=== PATIENT | male | born 1960 | race African-American/Black ===

== ENCOUNTER 2017-01-14 01:52 | Inpatient (IN) | payer OTHER ==
[2017-01-14] VITALS (18 sets, daily range): BP systolic 112–159; BP diastolic 51–97
[~2017-01-14] VITALS: Ht 188 cm; Wt 111.4 kg
[~2017-01-14 01:52] MED LIST: AMLODIPINE BESY10 MG PO; APRESOLINE25 MG PO; BUMETANIDE2 MG PO; CALCITRIOL0.25 MCG PO; DIOVAN160 MG; ERGOCALCIF50000 UNIT PO; EXCEDRIN EXTRA1 EACH PO; EXCEDRIN MIGRA1 EAC3 PO; EXFORGE HCT 101 EAC2 PO; FUROSEMIDE40 MG PO; GABAPENTIN300 MG PO; HYDROCHLOROTHIA25 MG PO; IMDUR30 MG PO; ISOSORBIDE MONO30 MG PO; K-DUR20 MEQ; K-DUR20 MEQ PO; KLOR-CON M2020 MEQ PO; LABETALOL HCL200 MG; LABETALOL HCL200 MG PO; LOSARTAN POTASS50 MG PO; MAGNESIUM400 M1 PO; MEN'S ONE DAIL1 EACH PO; NEPHRO-VITE,1 TABLET PO; NEURONTIN600 MG PO; NORMODYNE,TRAN200 MG PO; NOVOLOG MI100 UNIT/4 SC; SINUS BOTH NARES; ULTRAM50 MG PO
[2017-01-14 03:04] LABS: MCH 29.3 PG (29.0-34.0); MCHC 31.8 G/DL (30.0-36.0); MCV 92.1 FL (86-99); MEAN PLAT.VOLUME 10.7 uM^3 (9.0-12.4); PLATELET COUNT 439 K/uL (156-360); RBC DIS.WIDTH-CV 15.3 % (11.8-14.6); RED BLOOD COUNT 2.39 M/uL (4.00-5.50); WHITE BLOOD COUNT 15.7 K/uL (4.1-10.2)
[2017-01-14 03:13] LABS: CHLORIDE 87 mEq/L (99-109); POTASSIUM 4.1 mEq/L (3.7-5.4); SODIUM 126 mEq/L (136-147)
[2017-01-14 03:17] LABS: ANION GAP 16 MEQ/L (2-14); GLUCOSE 604 mg/dL (70-99)
[2017-01-14 03:18] LABS: D-DIMER ELISA > 4.00 mg/L FEU (< 0.57); INTER. NORMALIZED RATIO 1.1; PROTHROMBIN TIME 11.2 (9.2-11.2); PTT 35.4 (25-32); TOTAL BILIRUBIN 0.3 mg/dL (0.0-1.0)
[2017-01-14 03:19] LABS: ALKALINE PHOSPHATASE 109 IU/L (3-129); GFR ESTIMATE (CALCULATED) 7 mL/min/
[2017-01-14 03:20] LABS: UREA NITROGEN (BUN) 48 mg/dL (9-23)
[2017-01-14 03:23] LABS: LIPASE 37 U/L (1.0-51.0)
[2017-01-14 03:25] LABS: TROP-I INTERPRETATION NEGATIVE; TROPONIN-I 0.03 ng/mL (0.0-0.30)
[2017-01-14 05:22] LABS: BASE EXCESS -2.4 mEq/L (-3 to +3); BICARBONATE 23.7 mEq/L (22-26); CARBOXY HGB 1.9 % (0-5); COMMENTS - BLOOD GASES C+A+; METHEMOGLOBIN 1.1 % (0-1.5); O2 FLOW 4 L/MIN; PCO2 46 mm Hg (35-45); PO2 64 mm Hg (80-100); SITE RR; pH 7.32 (7.35-7.45)
[2017-01-14 05:23] LABS: DEVICE NC
[2017-01-14 08:28] LABS: Estimated Average Glucose 283 mg/dL (70-123); HEMOGLOBIN A1c (GLYCOHEMOGLOB) 11.5 % HGB (Below 5.7)
[2017-01-14 08:59] LABS: POINT-OF-CARE METER ID UU13113803; POINT-OF-CARE USER ID AGYTJR
[2017-01-14 09:32] LABS: METH RESISTANT S AUREUS PCR NEGATIVE (NEGATIVE); PROBE CHECK PASS; SPECIMEN PROCESSING CONTROL PASS
[2017-01-14 09:44] LABS: POINT-OF-CARE METER ID UU13113803; POINT-OF-CARE USER ID AGYTJR
[2017-01-14 09:57] LABS: ANION GAP 18 MEQ/L (2-14); CHLORIDE 89 MEQ/L (99-109); GFR ESTIMATE (CALCULATED) 7 mL/min/; GLUCOSE 337 mg/dL (70-99); POTASSIUM 4.1 MEQ/L (3.7-5.4); SAMPLE HEMOLYSIS CHECK 0; SAMPLE ICTERIC CHECK 0; SAMPLE LIPEMIA CHECK 0; SODIUM 127 MEQ/L (136-147); UREA NITROGEN (BUN) 50 mg/dL (9-23)
[2017-01-14 10:51] LABS: POINT-OF-CARE METER ID UU14100415
[2017-01-14 10:51] LABS: POINT-OF-CARE METER ID UU14100415
[2017-01-14 11:08] LABS: POINT-OF-CARE METER ID UU13113803; POINT-OF-CARE USER ID AGYTJR
[2017-01-14 12:18] LABS: POINT-OF-CARE METER ID UU13113803; POINT-OF-CARE USER ID AGYTJR
[2017-01-14 12:45] LABS: POINT-OF-CARE METER ID UU13113803; POINT-OF-CARE USER ID AGYTJR
[2017-01-14 12:59] LABS: BASOPHIL COUNT 0.1 K/uL (0-0.1); EOSINOPHIL (%) 0 % (0-5); HEMATOCRIT 24.4 % (38.0-50.0); IMMATURE GRANULOCYTE (%) 1.2 % (0.0-0.7); IMMATURE GRANULOCYTE COUNT 0.4 K/uL; INSTRUMENT ABS NEUTROPHIL CT 25.8 K/uL; MCH 30.3 PG (29.0-34.0); MCHC 33.2 G/DL (30.0-36.0); MCV 91.4 FL (86-99); MEAN PLAT.VOLUME 11.1 uM^3 (9.0-12.4); MONOCYTE (%) 5.8 % (3-12); MONOCYTE COUNT 1.7 K/uL (0-0.8); NEUTROPHIL (%) 89.3 % (45-76); NEUTROPHIL COUNT 25.8 K/uL (1.8-6.4); PLATELET COUNT 473 K/uL (156-360); RBC DIS.WIDTH-CV 15.9 % (11.8-14.6); RBC DIS.WIDTH-SD 51.8 % (39-53); RED BLOOD COUNT 2.67 M/uL (4.00-5.50); WHITE BLOOD COUNT 28.9 K/uL (4.1-10.2)
[2017-01-14 13:34] LABS: ANION GAP 16 MEQ/L (2-14); CHLORIDE 90 MEQ/L (99-109); GFR ESTIMATE (CALCULATED) 8 mL/min/; GLUCOSE 184 mg/dL (70-99); POTASSIUM 4.3 MEQ/L (3.7-5.4); SAMPLE HEMOLYSIS CHECK 0; SAMPLE ICTERIC CHECK 0; SAMPLE LIPEMIA CHECK 0; SODIUM 128 MEQ/L (136-147); UREA NITROGEN (BUN) 53 mg/dL (9-23)
[2017-01-14 14:01] LABS: POINT-OF-CARE METER ID UU13113803; POINT-OF-CARE USER ID AGYTJR
[2017-01-14 17:36] LABS: POINT-OF-CARE METER ID UU13113803; POINT-OF-CARE USER ID AGYTJR
[2017-01-14 21:58] LABS: POINT-OF-CARE METER ID UU13113803
[2017-01-15] VITALS (14 sets, daily range): BP systolic 99–183; BP diastolic 57–94
[2017-01-15 05:03] LABS: CHLORIDE 91 mEq/L (99-109); POTASSIUM 4.5 mEq/L (3.7-5.4); SODIUM 130 mEq/L (136-147)
[2017-01-15 05:06] LABS: ANION GAP 19 MEQ/L (2-14); GLUCOSE 107 mg/dL (70-99)
[2017-01-15 05:09] LABS: GFR ESTIMATE (CALCULATED) 7 mL/min/
[2017-01-15 05:10] LABS: UREA NITROGEN (BUN) 59 mg/dL (9-23)
[2017-01-15 08:07] LABS: POINT-OF-CARE METER ID UU13113748; POINT-OF-CARE USER ID AGYTJR
[2017-01-15 10:19] LABS: BASOPHIL COUNT 0.1 K/uL (0-0.1); EOSINOPHIL (%) 0.5 % (0-5); EOSINOPHIL COUNT 0.2 K/uL (0-0.3); IMMATURE GRANULOCYTE (%) 1.5 % (0.0-0.7); IMMATURE GRANULOCYTE COUNT 0.5 K/uL; INSTRUMENT ABS NEUTROPHIL CT 27.6 K/uL; LYMPHOCYTE COUNT 1.9 K/uL (1.0-2.8); MEAN PLAT.VOLUME 10.9 uM^3 (9.0-12.4); MONOCYTE (%) 6.5 % (3-12); MONOCYTE COUNT 2.1 K/uL (0-0.8); NEUTROPHIL (%) 85.3 % (45-76); NEUTROPHIL COUNT 27.6 K/uL (1.8-6.4); PLATELET COUNT 452 K/uL (156-360)
[2017-01-15 10:22] LABS: HEMATOCRIT 24.3 % (38.0-50.0); MCH 29.5 PG (29.0-34.0); MCHC 32.5 G/DL (30.0-36.0); MCV 90.7 FL (86-99); RBC DIS.WIDTH-CV 15.9 % (11.8-14.6); RBC DIS.WIDTH-SD 52.3 % (39-53); RED BLOOD COUNT 2.68 M/uL (4.00-5.50)
[2017-01-15 10:28] LABS: WHITE BLOOD COUNT 32.3 K/uL (4.1-10.2)
[2017-01-15] MEDS ORDERED: AMBIEN10 MG PO (10:37)
[2017-01-15] MEDS ORDERED: CALCITRIOL0.5 MCG PO (10:37)
[2017-01-15] MEDS ORDERED: VITAMIN D-32000 UNI2 PO (10:38)
[2017-01-15] MEDS ORDERED: COLACE100 MG PO (10:39)
[2017-01-15] MEDS ORDERED: FISH OIL 1,0001 EAC7 PO (10:39)
[2017-01-15] MEDS ORDERED: NEURONTIN100 MG PO ×2 (10:40)
[2017-01-15] MEDS ORDERED: GENTAMICIN SULF30 GM TP (10:43)
[2017-01-15] MEDS ORDERED: NOVOLOG MI100 UNIT/4 SC (10:44)
[2017-01-15] MEDS ORDERED: MINOXIDIL2.5 MG PO (10:45)
[2017-01-15] MEDS ORDERED: TYLENOL WITH C1 EACH PO (10:47)
[2017-01-15] MEDS ORDERED: SENSIPAR30 MG PO (10:47)
[2017-01-15] MEDS ORDERED: VALSARTAN320 MG PO (10:48)
[2017-01-15] MEDS ORDERED: ELIPHOS667 MG PO (10:49)
[2017-01-15] MEDS ORDERED: VENLAFAXINE HCL75 MG PO (10:50)
[2017-01-15] MEDS ORDERED: ONDANSETRON HCL4 MG PO (10:50)
[2017-01-15 12:31] LABS: POINT-OF-CARE METER ID UU13113803; POINT-OF-CARE USER ID AGYTJR
[2017-01-15 17:49] LABS: POINT-OF-CARE METER ID UU14174217
[2017-01-15 21:44] LABS: POINT-OF-CARE METER ID UU14174217
[2017-01-16] VITALS (8 sets, daily range): BP systolic 98–137; BP diastolic 68–88
[2017-01-16 05:54] LABS: ANION GAP 16 MEQ/L (2-14); CHLORIDE 88 MEQ/L (99-109); GFR ESTIMATE (CALCULATED) 8 mL/min/; POTASSIUM 4.7 MEQ/L (3.7-5.4); SAMPLE HEMOLYSIS CHECK 0; SAMPLE ICTERIC CHECK 0; SAMPLE LIPEMIA CHECK 0; SODIUM 125 MEQ/L (136-147); UREA NITROGEN (BUN) 59 mg/dL (9-23)
[2017-01-16 06:00] LABS: GLUCOSE 324 mg/dL (70-99)
[2017-01-16 08:18] LABS: VANCOMYCIN, TROUGH 21.5 MCG/ML (10-20)
[2017-01-16 17:45] LABS: POINT-OF-CARE METER ID UU14174217
[2017-01-16 21:39] LABS: POINT-OF-CARE METER ID UU14162636
[2017-01-17] VITALS (10 sets, daily range): BP systolic 120–164; BP diastolic 67–93
[2017-01-17 05:26] LABS: BASOPHIL COUNT 0.1 K/uL (0-0.1); EOSINOPHIL COUNT 0.3 K/uL (0-0.3); HEMATOCRIT 20.1 % (38.0-50.0); IMMATURE GRANULOCYTE COUNT 0.6 K/uL; INSTRUMENT ABS NEUTROPHIL CT 25.5 K/uL; LYMPHOCYTE COUNT 1.5 K/uL (1.0-2.8); MCH 30.6 PG (29.0-34.0); MCHC 33.8 G/DL (30.0-36.0); MCV 90.5 FL (86-99); MEAN PLAT.VOLUME 11.2 uM^3 (9.0-12.4); MONOCYTE (%) 5.6 % (3-12); MONOCYTE COUNT 1.7 K/uL (0-0.8); NEUTROPHIL (%) 86.1 % (45-76); NEUTROPHIL COUNT 25.5 K/uL (1.8-6.4); PLATELET COUNT 387 K/uL (156-360); RBC DIS.WIDTH-CV 15.5 % (11.8-14.6); RBC DIS.WIDTH-SD 50.5 % (39-53); RED BLOOD COUNT 2.22 M/uL (4.00-5.50); WHITE BLOOD COUNT 29.7 K/uL (4.1-10.2)
[2017-01-17 05:58] LABS: ANION GAP 18 MEQ/L (2-14); CHLORIDE 88 MEQ/L (99-109); GFR ESTIMATE (CALCULATED) 8 mL/min/; GLUCOSE 280 mg/dL (70-99); POTASSIUM 4.5 MEQ/L (3.7-5.4); SAMPLE HEMOLYSIS CHECK 0; SAMPLE ICTERIC CHECK 0; SAMPLE LIPEMIA CHECK 0; SODIUM 127 MEQ/L (136-147); UREA NITROGEN (BUN) 60 mg/dL (9-23)
[2017-01-17 15:44] LABS: TYPE OF FLUID PLEURAL
[2017-01-17 16:21] LABS: RED CELL DILUTION 10
[2017-01-17 16:22] LABS: BODY FLUID RBC'S 500 /MM^3 (0-100); BODY FLUID WBC'S 11250 /MM^3 (0-500); RED CELL AREA COUNTED 0.4; WBC AREA COUNTED 0.4; WBC DILUTION 10; WHITE CELL RAW COUNT 45
[2017-01-17 16:28] LABS: BODY FLUID EOSINOPHILS 0 % (0-25); MONO RAW COUNT 1; MONONUCLEAR WBC'S 1 %; POLY RAW COUNT 99; POLYNUCLEAR WBC'S 99 % (0-25)
[2017-01-17 16:40] LABS: BODY FLUID PROTEIN 5.1 G/DL; GLUCOSE 152 mg/dL (70-99); LACTATE DEHYDROGENASE 1406 IU/L (20-246)
[2017-01-17 16:41] LABS: BODY FLUID LDH 1406 IU/L
[2017-01-18] VITALS (9 sets, daily range): BP systolic 120–142; BP diastolic 65–76
[2017-01-18 04:28] LABS: BASOPHIL COUNT 0.1 K/uL (0-0.1); EOSINOPHIL (%) 2.3 % (0-5); EOSINOPHIL COUNT 0.6 K/uL (0-0.3); HEMATOCRIT 24.3 % (38.0-50.0); IMMATURE GRANULOCYTE COUNT 0.5 K/uL; INSTRUMENT ABS NEUTROPHIL CT 18.9 K/uL; LYMPHOCYTE COUNT 1.9 K/uL (1.0-2.8); MCH 28.9 PG (29.0-34.0); MCHC 32.9 G/DL (30.0-36.0); MCV 87.7 FL (86-99); MEAN PLAT.VOLUME 10.6 uM^3 (9.0-12.4); MONOCYTE (%) 8.2 % (3-12); NEUTROPHIL (%) 79.3 % (45-76); NEUTROPHIL COUNT 18.9 K/uL (1.8-6.4); PLATELET COUNT 380 K/uL (156-360); RBC DIS.WIDTH-CV 14.7 % (11.8-14.6); RBC DIS.WIDTH-SD 46.9 % (39-53); WHITE BLOOD COUNT 23.8 K/uL (4.1-10.2)
[2017-01-18 04:30] LABS: RED BLOOD COUNT 2.77 M/uL (4.00-5.50)
[2017-01-18 04:42] LABS: CHLORIDE 92 mEq/L (99-109); POTASSIUM 4.3 mEq/L (3.7-5.4); SODIUM 131 mEq/L (136-147)
[2017-01-18 04:43] LABS: CHLORIDE 93 mEq/L (99-109)
[2017-01-18 04:44] LABS: GLUCOSE 208 mg/dL (70-99); POTASSIUM 4.3 mEq/L (3.7-5.4); SODIUM 132 mEq/L (136-147)
[2017-01-18 04:45] LABS: ANION GAP 19 MEQ/L (2-14); GLUCOSE 210 mg/dL (70-99)
[2017-01-18 04:47] LABS: ANION GAP 18 MEQ/L (2-14)
[2017-01-18 04:48] LABS: GFR ESTIMATE (CALCULATED) 8 mL/min/
[2017-01-18 04:49] LABS: GFR ESTIMATE (CALCULATED) 8 mL/min/; UREA NITROGEN (BUN) 60 mg/dL (9-23)
[2017-01-18 04:50] LABS: UREA NITROGEN (BUN) 58 mg/dL (9-23)
[2017-01-18 04:57] LABS: ALKALINE PHOSPHATASE 240 IU/L (3-129); TOTAL BILIRUBIN 0.4 mg/dL (0.0-1.0)
[2017-01-18 07:36] LABS: POINT-OF-CARE METER ID UU13113781
[2017-01-18 12:45] LABS: POINT-OF-CARE METER ID UU13113781
[2017-01-18 13:00] LABS: TYPE OF FLUID PLEURAL
[2017-01-18 13:52] LABS: BODY FLUID EOSINOPHILS 0 % (0-25); BODY FLUID RBC'S 1000 /MM^3 (0-100); BODY FLUID WBC'S 13920 /MM^3 (0-500); MONONUCLEAR WBC'S 2 %; POLYNUCLEAR WBC'S 98 % (0-25)
[2017-01-18 14:28] LABS: BODY FLUID LDH 1320 IU/L; BODY FLUID PROTEIN 5.2 G/DL
[2017-01-18 15:11] LABS: IRON 26 MCG/DL (35-150)
[2017-01-18 15:56] LABS: GLUCOSE 175 mg/dL (70-99)
[2017-01-18 15:57] LABS: LACTATE DEHYDROGENASE 134 IU/L (20-246)
[2017-01-18 16:43] LABS: POINT-OF-CARE METER ID UU13113781
[2017-01-18 21:07] LABS: POINT-OF-CARE METER ID UU13113698
[2017-01-19 04:47] LABS: BASOPHIL COUNT 0.1 K/uL (0-0.1); EOSINOPHIL (%) 3.2 % (0-5); EOSINOPHIL COUNT 0.7 K/uL (0-0.3); HEMATOCRIT 25.9 % (38.0-50.0); IMMATURE GRANULOCYTE (%) 2.4 % (0.0-0.7); IMMATURE GRANULOCYTE COUNT 0.5 K/uL; INSTRUMENT ABS NEUTROPHIL CT 16.9 K/uL; LYMPHOCYTE COUNT 1.9 K/uL (1.0-2.8); MCH 29.8 PG (29.0-34.0); MCHC 33.6 G/DL (30.0-36.0); MCV 88.7 FL (86-99); MEAN PLAT.VOLUME 10.5 uM^3 (9.0-12.4); MONOCYTE (%) 7.9 % (3-12); MONOCYTE COUNT 1.7 K/uL (0-0.8); NEUTROPHIL (%) 77.3 % (45-76); NEUTROPHIL COUNT 16.9 K/uL (1.8-6.4); PLATELET COUNT 417 K/uL (156-360); RBC DIS.WIDTH-CV 15.1 % (11.8-14.6); RBC DIS.WIDTH-SD 48.4 % (39-53); RED BLOOD COUNT 2.92 M/uL (4.00-5.50); WHITE BLOOD COUNT 21.8 K/uL (4.1-10.2)
[2017-01-19 04:52] VITALS: BP 128/72
[2017-01-19 04:55] LABS: CHLORIDE 95 mEq/L (99-109); POTASSIUM 4.6 mEq/L (3.7-5.4); SODIUM 133 mEq/L (136-147)
[2017-01-19 04:57] LABS: GLUCOSE 176 mg/dL (70-99)
[2017-01-19 04:58] LABS: ANION GAP 17 MEQ/L (2-14); CHLORIDE 95 mEq/L (99-109); POTASSIUM 4.5 mEq/L (3.7-5.4); SODIUM 133 mEq/L (136-147)
[2017-01-19 05:00] LABS: ALKALINE PHOSPHATASE 236 IU/L (3-129); GLUCOSE 177 mg/dL (70-99)
[2017-01-19 05:01] LABS: GFR ESTIMATE (CALCULATED) 8 mL/min/
[2017-01-19 05:02] LABS: ANION GAP 18 MEQ/L (2-14); UREA NITROGEN (BUN) 57 mg/dL (9-23)
[2017-01-19 05:04] LABS: GFR ESTIMATE (CALCULATED) 8 mL/min/
[2017-01-19 05:05] LABS: UREA NITROGEN (BUN) 56 mg/dL (9-23)
[2017-01-19 05:07] LABS: TOTAL BILIRUBIN 0.3 mg/dL (0.0-1.0)
[2017-01-19 08:25] VITALS: BP 137/62
[2017-01-19 08:32] LABS: POINT-OF-CARE METER ID UU13113781; POINT-OF-CARE USER ID NUTSLF44
[2017-01-19 10:24] LABS: POC NON-PRINT COM 1 ND
[2017-01-19 12:16] VITALS: BP 145/77
[2017-01-19 12:42] LABS: POINT-OF-CARE METER ID UU13113781; POINT-OF-CARE USER ID NUTSLF44
[2017-01-19 16:01] VITALS: BP 140/69
[2017-01-19 17:14] LABS: POINT-OF-CARE METER ID UU13113781; POINT-OF-CARE USER ID NUTSLF44
[2017-01-19 19:20] VITALS: BP 160/87
[2017-01-19 23:13] VITALS: BP 168/88
[2017-01-20 03:42] VITALS: BP 149/81
[2017-01-20 05:45] LABS: BASOPHIL COUNT 0.1 K/uL (0-0.1); EOSINOPHIL (%) 3.8 % (0-5); EOSINOPHIL COUNT 0.8 K/uL (0-0.3); HEMATOCRIT 27.2 % (38.0-50.0); IMMATURE GRANULOCYTE (%) 2.9 % (0.0-0.7); IMMATURE GRANULOCYTE COUNT 0.6 K/uL; INSTRUMENT ABS NEUTROPHIL CT 15.3 K/uL; LYMPHOCYTE COUNT 2.4 K/uL (1.0-2.8); MCH 29.1 PG (29.0-34.0); MEAN PLAT.VOLUME 10.6 uM^3 (9.0-12.4); MONOCYTE COUNT 1.7 K/uL (0-0.8); NEUTROPHIL (%) 73.3 % (45-76); NEUTROPHIL COUNT 15.3 K/uL (1.8-6.4); PLATELET COUNT 495 K/uL (156-360); RBC DIS.WIDTH-CV 15.3 % (11.8-14.6); RBC DIS.WIDTH-SD 50.2 % (39-53); RED BLOOD COUNT 2.99 M/uL (4.00-5.50); WHITE BLOOD COUNT 20.9 K/uL (4.1-10.2)
[2017-01-20 06:11] LABS: ALKALINE PHOSPHATASE 208 IU/L (3-129); ANION GAP 17 MEQ/L (2-14); CHLORIDE 95 MEQ/L (99-109); GFR ESTIMATE (CALCULATED) 9 mL/min/; GLUCOSE 123 mg/dL (70-99); POTASSIUM 4.8 MEQ/L (3.7-5.4); SAMPLE HEMOLYSIS CHECK 0; SAMPLE ICTERIC CHECK 0; SAMPLE LIPEMIA CHECK 0; SODIUM 136 MEQ/L (136-147); TOTAL BILIRUBIN 0.4 MG/DL (0.0-1.0); UREA NITROGEN (BUN) 53 mg/dL (9-23)
[2017-01-20 07:24] VITALS: BP 158/79
[2017-01-20 08:12] LABS: POINT-OF-CARE METER ID UU13113698; POINT-OF-CARE USER ID ENVKC36
[2017-01-20 11:33] LABS: POINT-OF-CARE METER ID UU13113781; POINT-OF-CARE USER ID ENVKC36
[2017-01-20 16:38] LABS: POINT-OF-CARE METER ID UU13113781; POINT-OF-CARE USER ID ENVKC36
[2017-01-20 16:47] VITALS: BP 163/91
[2017-01-20 18:00] VITALS: BP 177/94
[2017-01-20 19:25] VITALS: BP 168/89
[2017-01-20 21:38] LABS: POINT-OF-CARE METER ID UU13113698
[2017-01-20 23:40] VITALS: BP 149/76
[2017-01-21 03:26] VITALS: BP 139/73
[2017-01-21 05:44] LABS: BASOPHIL COUNT 0.1 K/uL (0-0.1); EOSINOPHIL (%) 3.4 % (0-5); EOSINOPHIL COUNT 0.6 K/uL (0-0.3); HEMATOCRIT 28.3 % (38.0-50.0); IMMATURE GRANULOCYTE (%) 3.1 % (0.0-0.7); IMMATURE GRANULOCYTE COUNT 0.6 K/uL; INSTRUMENT ABS NEUTROPHIL CT 13.5 K/uL; LYMPHOCYTE COUNT 2.1 K/uL (1.0-2.8); MCHC 32.5 G/DL (30.0-36.0); MCV 92.2 FL (86-99); MEAN PLAT.VOLUME 10.6 uM^3 (9.0-12.4); MONOCYTE (%) 8.4 % (3-12); MONOCYTE COUNT 1.6 K/uL (0-0.8); NEUTROPHIL COUNT 13.5 K/uL (1.8-6.4); PLATELET COUNT 516 K/uL (156-360); RBC DIS.WIDTH-CV 15.6 % (11.8-14.6); RBC DIS.WIDTH-SD 51.6 % (39-53); RED BLOOD COUNT 3.07 M/uL (4.00-5.50); WHITE BLOOD COUNT 18.5 K/uL (4.1-10.2)
[2017-01-21 06:39] LABS: ALKALINE PHOSPHATASE 190 IU/L (3-129); ANION GAP 18 MEQ/L (2-14); CHLORIDE 95 MEQ/L (99-109); GFR ESTIMATE (CALCULATED) 9 mL/min/; GLUCOSE 176 mg/dL (70-99); POTASSIUM 4.8 MEQ/L (3.7-5.4); SAMPLE HEMOLYSIS CHECK 0; SAMPLE ICTERIC CHECK 0; SAMPLE LIPEMIA CHECK 0; SODIUM 136 MEQ/L (136-147); UREA NITROGEN (BUN) 48 mg/dL (9-23)
[2017-01-21 06:43] LABS: TOTAL BILIRUBIN 0.3 MG/DL (0.0-1.0)
[2017-01-21 07:50] VITALS: BP 165/81
[2017-01-21 11:47] VITALS: BP 140/68
[2017-01-21 15:53] VITALS: BP 150/75
[2017-01-21 19:23] VITALS: BP 145/70
[2017-01-22 03:50] VITALS: BP 136/76
[2017-01-22 05:26] LABS: BASOPHIL COUNT 0.1 K/uL (0-0.1); EOSINOPHIL (%) 3.9 % (0-5); EOSINOPHIL COUNT 0.7 K/uL (0-0.3); HEMATOCRIT 26.7 % (38.0-50.0); IMMATURE GRANULOCYTE (%) 2.7 % (0.0-0.7); IMMATURE GRANULOCYTE COUNT 0.5 K/uL; INSTRUMENT ABS NEUTROPHIL CT 11.6 K/uL; LYMPHOCYTE COUNT 2.4 K/uL (1.0-2.8); MCH 30.3 PG (29.0-34.0); MCHC 32.2 G/DL (30.0-36.0); MEAN PLAT.VOLUME 10.4 uM^3 (9.0-12.4); MONOCYTE COUNT 1.7 K/uL (0-0.8); NEUTROPHIL (%) 68.9 % (45-76); NEUTROPHIL COUNT 11.6 K/uL (1.8-6.4); PLATELET COUNT 506 K/uL (156-360); RBC DIS.WIDTH-CV 15.6 % (11.8-14.6); RBC DIS.WIDTH-SD 53.1 % (39-53); RED BLOOD COUNT 2.84 M/uL (4.00-5.50); WHITE BLOOD COUNT 16.8 K/uL (4.1-10.2)
[2017-01-22 07:27] VITALS: BP 146/74
[2017-01-22 08:04] LABS: POINT-OF-CARE METER ID UU13113698
[2017-01-22 12:15] VITALS: BP 162/88
[2017-01-22 16:13] VITALS: BP 159/84
[2017-01-22 19:45] VITALS: BP 152/83
[2017-01-22 21:54] LABS: POINT-OF-CARE METER ID UU13113698
[2017-01-23] VITALS (7 sets, daily range): BP systolic 132–172; BP diastolic 77–95
[2017-01-23 06:04] LABS: BASOPHIL COUNT 0.1 K/uL (0-0.1); EOSINOPHIL (%) 2.9 % (0-5); EOSINOPHIL COUNT 0.5 K/uL (0-0.3); HEMATOCRIT 26.5 % (38.0-50.0); IMMATURE GRANULOCYTE (%) 1.8 % (0.0-0.7); IMMATURE GRANULOCYTE COUNT 0.3 K/uL; LYMPHOCYTE COUNT 2.1 K/uL (1.0-2.8); MCH 28.8 PG (29.0-34.0); MCHC 30.9 G/DL (30.0-36.0); MEAN PLAT.VOLUME 10.1 uM^3 (9.0-12.4); MONOCYTE (%) 8.7 % (3-12); MONOCYTE COUNT 1.4 K/uL (0-0.8); NEUTROPHIL (%) 73.1 % (45-76); PLATELET COUNT 531 K/uL (156-360); RBC DIS.WIDTH-CV 15.5 % (11.8-14.6); RBC DIS.WIDTH-SD 51.9 % (39-53); RED BLOOD COUNT 2.85 M/uL (4.00-5.50); WHITE BLOOD COUNT 16.4 K/uL (4.1-10.2)
[2017-01-23 06:35] LABS: ANION GAP 17 MEQ/L (2-14); CHLORIDE 95 MEQ/L (99-109); GFR ESTIMATE (CALCULATED) 9 mL/min/; GLUCOSE 174 mg/dL (70-99); SAMPLE HEMOLYSIS CHECK 0; SAMPLE ICTERIC CHECK 0; SAMPLE LIPEMIA CHECK 0; SODIUM 136 MEQ/L (136-147); TOTAL BILIRUBIN 0.3 MG/DL (0.0-1.0); UREA NITROGEN (BUN) 45 mg/dL (9-23)
[2017-01-23 06:38] LABS: ALKALINE PHOSPHATASE 139 IU/L (3-129)
[2017-01-23 07:55] LABS: POINT-OF-CARE METER ID UU13113781
[2017-01-23 14:04] LABS: IRON 24 MCG/DL (35-150)
[2017-01-23 21:23] LABS: POINT-OF-CARE USER ID ENVMNS
[2017-01-24 02:49] LABS: POINT-OF-CARE USER ID ENVMNS
[2017-01-24 05:01] VITALS: BP 139/69
[2017-01-24 06:45] LABS: HEMATOCRIT 26.9 % (38.0-50.0); MCH 29.8 PG (29.0-34.0); MCV 93.1 FL (86-99); MEAN PLAT.VOLUME 9.9 uM^3 (9.0-12.4); PLATELET COUNT 529 K/uL (156-360); RBC DIS.WIDTH-CV 15.5 % (11.8-14.6); RBC DIS.WIDTH-SD 52.4 % (39-53); RED BLOOD COUNT 2.89 M/uL (4.00-5.50); WHITE BLOOD COUNT 17.1 K/uL (4.1-10.2)
[2017-01-24 07:16] LABS: ANION GAP 13 MEQ/L (2-14); CHLORIDE 95 MEQ/L (99-109); GFR ESTIMATE (CALCULATED) 9 mL/min/; GLUCOSE 161 mg/dL (70-99); POTASSIUM 4.7 MEQ/L (3.7-5.4); SAMPLE HEMOLYSIS CHECK 0; SAMPLE ICTERIC CHECK 0; SAMPLE LIPEMIA CHECK 0; SODIUM 135 MEQ/L (136-147); UREA NITROGEN (BUN) 42 mg/dL (9-23)
[2017-01-24 07:50] VITALS: BP 157/81
[2017-01-24 11:41] VITALS: BP 162/92
[2017-01-24 15:51] VITALS: BP 173/99
[2017-01-24 19:20] VITALS: BP 168/80
[2017-01-24 21:22] LABS: POINT-OF-CARE METER ID UU13113781
[2017-01-25 08:15] VITALS: BP 153/72
[2017-01-25 08:15] LABS: POINT-OF-CARE METER ID UU13113725
[2017-01-25 12:06] LABS: POINT-OF-CARE METER ID UU13113725
[2017-01-25 15:27] LABS: POINT-OF-CARE METER ID UU13113725
[2017-01-25 15:43] VITALS: BP 153/90
[2017-01-25 18:53] VITALS: BP 152/70
[2017-01-26 06:46] LABS: POINT-OF-CARE METER ID UU13113725
[2017-01-26 07:56] VITALS: BP 175/88
[2017-01-26 11:15] LABS: POINT-OF-CARE METER ID UU13113725
[2017-01-26 12:30] VITALS: BP 128/78
[2017-01-26 18:30] LABS: POINT-OF-CARE METER ID UU13113675
[2017-01-26 21:03] LABS: POINT-OF-CARE METER ID UU13113725
[2017-01-26 23:10] VITALS: BP 161/85
[2017-01-27 03:01] LABS: POINT-OF-CARE METER ID UU13113725
[2017-01-27 06:13] LABS: POINT-OF-CARE METER ID UU13113725
[2017-01-27 06:23] LABS: MCH 30.1 PG (29.0-34.0); MEAN PLAT.VOLUME 10.1 uM^3 (9.0-12.4); PLATELET COUNT 528 K/uL (156-360); RBC DIS.WIDTH-CV 15.3 % (11.8-14.6); RBC DIS.WIDTH-SD 52.1 % (39-53); RED BLOOD COUNT 2.66 M/uL (4.00-5.50); WHITE BLOOD COUNT 21.6 K/uL (4.1-10.2)
[2017-01-27 06:44] LABS: ANION GAP 17 MEQ/L (2-14); CHLORIDE 99 MEQ/L (99-109); POTASSIUM 5.5 MEQ/L (3.7-5.4); SAMPLE HEMOLYSIS CHECK 0; SAMPLE ICTERIC CHECK 0; SAMPLE LIPEMIA CHECK 0; SODIUM 138 MEQ/L (136-147)
[2017-01-27 06:54] LABS: GFR ESTIMATE (CALCULATED) 8 mL/min/; UREA NITROGEN (BUN) 57 mg/dL (9-23)
[2017-01-27 06:55] LABS: GLUCOSE 107 mg/dL (70-99)
[2017-01-27 07:47] VITALS: BP 146/71
[2017-01-27 11:41] LABS: POINT-OF-CARE METER ID UU13113725
[2017-01-27 16:00] VITALS: BP 113/61; BP 13/61
[2017-01-27 17:09] LABS: POINT-OF-CARE METER ID UU13113725
[2017-01-27 23:20] VITALS: BP 127/68
[2017-01-28] VITALS (8 sets, daily range): BP systolic 100–116; BP diastolic 56–76
[2017-01-28 06:44] LABS: POINT-OF-CARE METER ID UU13113725
[2017-01-28 08:33] LABS: POINT-OF-CARE METER ID UU13113725
[2017-01-28 08:33] LABS: BASOPHIL COUNT 0.1 K/uL (0-0.1); EOSINOPHIL (%) 0.5 % (0-5); EOSINOPHIL COUNT 0.1 K/uL (0-0.3); HEMATOCRIT 26.5 % (38.0-50.0); IMMATURE GRANULOCYTE (%) 1.1 % (0.0-0.7); IMMATURE GRANULOCYTE COUNT 0.3 K/uL; INSTRUMENT ABS NEUTROPHIL CT 19.6 K/uL; LYMPHOCYTE COUNT 1.7 K/uL (1.0-2.8); MCH 28.8 PG (29.0-34.0); MCHC 30.6 G/DL (30.0-36.0); MCV 94.3 FL (86-99); MEAN PLAT.VOLUME 9.8 uM^3 (9.0-12.4); MONOCYTE COUNT 1.2 K/uL (0-0.8); NEUTROPHIL (%) 85.8 % (45-76); NEUTROPHIL COUNT 19.6 K/uL (1.8-6.4); PLATELET COUNT 521 K/uL (156-360); RBC DIS.WIDTH-CV 15.7 % (11.8-14.6); RBC DIS.WIDTH-SD 54.3 % (39-53); RED BLOOD COUNT 2.81 M/uL (4.00-5.50); WHITE BLOOD COUNT 22.9 K/uL (4.1-10.2)
[2017-01-28 09:03] LABS: ANION GAP 15 MEQ/L (2-14); CHLORIDE 96 MEQ/L (99-109); GFR ESTIMATE (CALCULATED) 8 mL/min/; GLUCOSE 131 mg/dL (70-99); POTASSIUM 5.5 MEQ/L (3.7-5.4); SAMPLE HEMOLYSIS CHECK 0; SAMPLE ICTERIC CHECK 0; SAMPLE LIPEMIA CHECK 0; SODIUM 133 MEQ/L (136-147); UREA NITROGEN (BUN) 57 mg/dL (9-23)
[2017-01-28 11:47] LABS: POINT-OF-CARE METER ID UU13113725
[2017-01-28 16:08] LABS: POINT-OF-CARE METER ID UU13113725
[2017-01-28 21:31] LABS: POINT-OF-CARE METER ID UU13113725
[2017-01-29 07:53] VITALS: BP 111/62
[2017-01-29 11:17] LABS: POINT-OF-CARE METER ID UU13113725
[2017-01-29 16:09] VITALS: BP 109/67
[2017-01-29 21:32] VITALS: BP 140/75
[2017-01-29 21:44] LABS: POINT-OF-CARE METER ID UU13113725
[2017-01-30] VITALS (7 sets, daily range): BP systolic 109–143; BP diastolic 65–88
[2017-01-30 06:01] LABS: BASOPHIL COUNT 0.1 K/uL (0-0.1); EOSINOPHIL (%) 5.3 % (0-5); EOSINOPHIL COUNT 0.7 K/uL (0-0.3); HEMATOCRIT 24.9 % (38.0-50.0); IMMATURE GRANULOCYTE (%) 0.8 % (0.0-0.7); IMMATURE GRANULOCYTE COUNT 0.1 K/uL; INSTRUMENT ABS NEUTROPHIL CT 9.5 K/uL; LYMPHOCYTE COUNT 1.9 K/uL (1.0-2.8); MCH 30.2 PG (29.0-34.0); MCHC 32.1 G/DL (30.0-36.0); MEAN PLAT.VOLUME 10.2 uM^3 (9.0-12.4); MONOCYTE (%) 10.2 % (3-12); MONOCYTE COUNT 1.4 K/uL (0-0.8); NEUTROPHIL COUNT 9.5 K/uL (1.8-6.4); PLATELET COUNT 508 K/uL (156-360); RBC DIS.WIDTH-SD 54.4 % (39-53); RED BLOOD COUNT 2.65 M/uL (4.00-5.50); WHITE BLOOD COUNT 13.7 K/uL (4.1-10.2)
[2017-01-30 06:06] LABS: POINT-OF-CARE METER ID UU13113725
[2017-01-30 06:34] LABS: ANION GAP 16 MEQ/L (2-14); CHLORIDE 97 MEQ/L (99-109); GFR ESTIMATE (CALCULATED) 8 mL/min/; POTASSIUM 5.2 MEQ/L (3.7-5.4); SAMPLE HEMOLYSIS CHECK 0; SAMPLE ICTERIC CHECK 0; SAMPLE LIPEMIA CHECK 0; SODIUM 134 MEQ/L (136-147); UREA NITROGEN (BUN) 54 mg/dL (9-23)
[2017-01-30 06:35] LABS: GLUCOSE 49 mg/dL (70-99)
[2017-01-30 06:40] LABS: POINT-OF-CARE METER ID UU13113725
[2017-01-30 07:15] LABS: POINT-OF-CARE METER ID UU13113725
[2017-01-30 11:10] LABS: POINT-OF-CARE METER ID UU13113725
[2017-01-30 11:28] LABS: POINT-OF-CARE METER ID UU13113725
[2017-01-30 11:44] LABS: POINT-OF-CARE METER ID UU13113725
[2017-01-30 12:08] LABS: POINT-OF-CARE METER ID UU13113725
[2017-01-30 12:16] LABS: GLUCOSE 94 mg/dL (70-99)
[2017-01-30 12:22] LABS: POINT-OF-CARE METER ID UU13113725
[2017-01-30 12:30] LABS: POINT-OF-CARE METER ID UU13113725
[2017-01-30 12:43] LABS: POINT-OF-CARE METER ID UU13113725
[2017-01-30 13:22] LABS: POINT-OF-CARE METER ID UU13113725
[2017-01-30 13:56] LABS: POINT-OF-CARE METER ID UU13113725
[2017-01-30 14:10] LABS: POINT-OF-CARE METER ID UU13113725
[2017-01-30 14:58] LABS: POINT-OF-CARE METER ID UU13113725
[2017-01-30 16:21] LABS: POINT-OF-CARE METER ID UU13113725
[2017-01-30 21:21] LABS: POINT-OF-CARE METER ID UU13113725
[2017-01-31] VITALS (7 sets, daily range): BP systolic 120–167; BP diastolic 59–94
[2017-01-31 06:00] LABS: BASOPHIL COUNT 0.1 K/uL (0-0.1); EOSINOPHIL (%) 5.5 % (0-5); EOSINOPHIL COUNT 0.7 K/uL (0-0.3); HEMATOCRIT 24.3 % (38.0-50.0); IMMATURE GRANULOCYTE (%) 0.9 % (0.0-0.7); IMMATURE GRANULOCYTE COUNT 0.1 K/uL; INSTRUMENT ABS NEUTROPHIL CT 9.1 K/uL; LYMPHOCYTE COUNT 1.8 K/uL (1.0-2.8); MCH 29.5 PG (29.0-34.0); MCHC 31.3 G/DL (30.0-36.0); MCV 94.2 FL (86-99); MEAN PLAT.VOLUME 10.1 uM^3 (9.0-12.4); MONOCYTE (%) 10.7 % (3-12); MONOCYTE COUNT 1.4 K/uL (0-0.8); NEUTROPHIL (%) 68.8 % (45-76); NEUTROPHIL COUNT 9.1 K/uL (1.8-6.4); PLATELET COUNT 505 K/uL (156-360); RBC DIS.WIDTH-CV 15.9 % (11.8-14.6); RBC DIS.WIDTH-SD 53.6 % (39-53); RED BLOOD COUNT 2.58 M/uL (4.00-5.50); WHITE BLOOD COUNT 13.2 K/uL (4.1-10.2)
[2017-01-31 06:18] LABS: POINT-OF-CARE METER ID UU13113725
[2017-01-31 06:28] LABS: ANION GAP 15 MEQ/L (2-14); CHLORIDE 96 MEQ/L (99-109); GFR ESTIMATE (CALCULATED) 9 mL/min/; POTASSIUM 5.4 MEQ/L (3.7-5.4); SAMPLE HEMOLYSIS CHECK 0; SAMPLE ICTERIC CHECK 0; SAMPLE LIPEMIA CHECK 0; SODIUM 132 MEQ/L (136-147); UREA NITROGEN (BUN) 55 mg/dL (9-23)
[2017-01-31 06:38] LABS: GLUCOSE 266 mg/dL (70-99)
[2017-01-31 07:51] LABS: INTACT PARATHYROID HORMONE 142 pg/mL (10-69)
[2017-01-31 11:19] LABS: POINT-OF-CARE METER ID UU13113725
[2017-01-31 15:58] LABS: POINT-OF-CARE METER ID UU13113725
[2017-02-01] VITALS (14 sets, daily range): BP systolic 134–183; BP diastolic 82–100
[2017-02-01 05:45] LABS: POINT-OF-CARE METER ID UU13113725
[2017-02-01 05:52] LABS: HEMATOCRIT 23.2 % (38.0-50.0); MCH 30.5 PG (29.0-34.0); MCHC 32.3 G/DL (30.0-36.0); MCV 94.3 FL (86-99); MEAN PLAT.VOLUME 10.1 uM^3 (9.0-12.4); PLATELET COUNT 501 K/uL (156-360); RBC DIS.WIDTH-CV 16.3 % (11.8-14.6); RBC DIS.WIDTH-SD 54.8 % (39-53); RED BLOOD COUNT 2.46 M/uL (4.00-5.50); WHITE BLOOD COUNT 14.8 K/uL (4.1-10.2)
[2017-02-01 06:24] LABS: ANION GAP 14 MEQ/L (2-14); CHLORIDE 98 MEQ/L (99-109); GFR ESTIMATE (CALCULATED) 9 mL/min/; POTASSIUM 4.8 MEQ/L (3.7-5.4); SAMPLE HEMOLYSIS CHECK 0; SAMPLE ICTERIC CHECK 0; SAMPLE LIPEMIA CHECK 0; SODIUM 133 MEQ/L (136-147); UREA NITROGEN (BUN) 54 mg/dL (9-23)
[2017-02-01 06:40] LABS: GLUCOSE 126 mg/dL (70-99)
[2017-02-01 08:40] LABS: BASE EXCESS -1.3 mEq/L (-3 to +3); BICARBONATE 23.7 mEq/L (22-26); CARBOXY HGB 2.1 % (0-5); METHEMOGLOBIN 1.1 % (0-1.5); PO2 67 mm Hg (80-100); pH 7.38 (7.35-7.45)
[2017-02-01 08:41] LABS: COMMENTS - BLOOD GASES A+C+; FI02 21 %; PCO2 40 mm Hg (35-45); SITE RR
[2017-02-01 08:52] LABS: POINT-OF-CARE METER ID UU13113725
[2017-02-01 09:36] LABS: TOTAL BILIRUBIN 0.3 MG/DL (0.0-1.0)
[2017-02-01 09:41] LABS: ALKALINE PHOSPHATASE 98 IU/L (3-129)
[2017-02-01 11:36] LABS: POINT-OF-CARE METER ID UU13113725
[2017-02-01 15:32] LABS: POC NON-PRINT COM 1 ND
[2017-02-01 15:53] LABS: POINT-OF-CARE METER ID UU13113725
[2017-02-01 16:12] LABS: POINT-OF-CARE METER ID UU13113725
[2017-02-01 16:55] LABS: POINT-OF-CARE METER ID UU13113725
[2017-02-01 22:25] LABS: POINT-OF-CARE METER ID UU13113725
[2017-02-02] VITALS (10 sets, daily range): BP systolic 132–195; BP diastolic 84–109
[2017-02-02 05:49] LABS: HEMATOCRIT 26.4 % (38.0-50.0); MCH 30.6 PG (29.0-34.0); MCHC 32.6 G/DL (30.0-36.0); MEAN PLAT.VOLUME 9.8 uM^3 (9.0-12.4); PLATELET COUNT 466 K/uL (156-360); RBC DIS.WIDTH-CV 16.1 % (11.8-14.6); RBC DIS.WIDTH-SD 53.9 % (39-53); RED BLOOD COUNT 2.81 M/uL (4.00-5.50); WHITE BLOOD COUNT 12.3 K/uL (4.1-10.2)
[2017-02-02 06:36] LABS: ANION GAP 12 MEQ/L (2-14); CHLORIDE 99 MEQ/L (99-109); GFR ESTIMATE (CALCULATED) 9 mL/min/; POTASSIUM 4.7 MEQ/L (3.7-5.4); SAMPLE HEMOLYSIS CHECK 0; SAMPLE ICTERIC CHECK 0; SAMPLE LIPEMIA CHECK 0; SODIUM 134 MEQ/L (136-147); UREA NITROGEN (BUN) 51 mg/dL (9-23)
[2017-02-02 06:37] LABS: GLUCOSE 84 mg/dL (70-99)
[2017-02-02 17:14] LABS: POINT-OF-CARE METER ID UU13113725
[2017-02-02 20:51] LABS: POINT-OF-CARE METER ID UU13113725
[2017-02-03 00:45] VITALS: BP 140/92
[2017-02-03 02:30] VITALS: BP 130/88
[2017-02-03 05:47] LABS: POINT-OF-CARE METER ID UU13113725
[2017-02-03 06:08] LABS: BASOPHIL COUNT 0.1 K/uL (0-0.1); EOSINOPHIL (%) 7.3 % (0-5); EOSINOPHIL COUNT 0.9 K/uL (0-0.3); HEMATOCRIT 28.4 % (38.0-50.0); IMMATURE GRANULOCYTE (%) 0.7 % (0.0-0.7); IMMATURE GRANULOCYTE COUNT 0.1 K/uL; LYMPHOCYTE COUNT 2.1 K/uL (1.0-2.8); MCH 29.7 PG (29.0-34.0); MCHC 31.3 G/DL (30.0-36.0); MCV 94.7 FL (86-99); MEAN PLAT.VOLUME 9.9 uM^3 (9.0-12.4); MONOCYTE (%) 10.3 % (3-12); MONOCYTE COUNT 1.3 K/uL (0-0.8); NEUTROPHIL (%) 64.7 % (45-76); PLATELET COUNT 476 K/uL (156-360); RBC DIS.WIDTH-CV 16.6 % (11.8-14.6); RBC DIS.WIDTH-SD 56.4 % (39-53); WHITE BLOOD COUNT 12.3 K/uL (4.1-10.2)
[2017-02-03 06:44] LABS: ALKALINE PHOSPHATASE 97 IU/L (3-129); ANION GAP 11 MEQ/L (2-14); CHLORIDE 97 MEQ/L (99-109); GFR ESTIMATE (CALCULATED) 9 mL/min/; GLUCOSE 103 mg/dL (70-99); POTASSIUM 4.9 MEQ/L (3.7-5.4); SAMPLE HEMOLYSIS CHECK 0; SAMPLE ICTERIC CHECK 0; SAMPLE LIPEMIA CHECK 0; SODIUM 134 MEQ/L (136-147); TOTAL BILIRUBIN 0.3 MG/DL (0.0-1.0); UREA NITROGEN (BUN) 47 mg/dL (9-23)
[2017-02-03 07:43] VITALS: BP 124/83
[2017-02-03 12:07] LABS: POINT-OF-CARE METER ID UU13113725
[2017-02-03 12:40] VITALS: BP 123/80
[2017-02-03 16:15] VITALS: BP 170/82
[2017-02-03 20:00] VITALS: BP 165/105
[2017-02-03 21:10] LABS: POINT-OF-CARE METER ID UU13113725
[2017-02-04] VITALS: BP 170/106
[2017-02-04 01:00] VITALS: BP 140/90
[2017-02-04 03:28] VITALS: BP 150/80
[2017-02-04 06:01] LABS: POINT-OF-CARE METER ID UU13113725
[2017-02-04 06:08] LABS: EOSINOPHIL (%) 6.3 % (0-5); EOSINOPHIL COUNT 0.8 K/uL (0-0.3); HEMATOCRIT 29.3 % (38.0-50.0); IMMATURE GRANULOCYTE (%) 0.7 % (0.0-0.7); IMMATURE GRANULOCYTE COUNT 0.1 K/uL; INSTRUMENT ABS NEUTROPHIL CT 7.8 K/uL; LYMPHOCYTE COUNT 1.9 K/uL (1.0-2.8); MCH 29.3 PG (29.0-34.0); MCHC 30.7 G/DL (30.0-36.0); MCV 95.4 FL (86-99); MEAN PLAT.VOLUME 9.9 uM^3 (9.0-12.4); MONOCYTE (%) 11.9 % (3-12); MONOCYTE COUNT 1.4 K/uL (0-0.8); NEUTROPHIL (%) 64.7 % (45-76); NEUTROPHIL COUNT 7.8 K/uL (1.8-6.4); NRBC (%) 0.2 /100 WBC (0-0); PLATELET COUNT 475 K/uL (156-360); RBC DIS.WIDTH-SD 58.4 % (39-53); RED BLOOD COUNT 3.07 M/uL (4.00-5.50)
[2017-02-04 07:15] VITALS: BP 110/90
[2017-02-04 07:16] LABS: ALKALINE PHOSPHATASE 102 IU/L (3-129); ANION GAP 12 MEQ/L (2-14); CHLORIDE 94 MEQ/L (99-109); GFR ESTIMATE (CALCULATED) 9 mL/min/; GLUCOSE 118 mg/dL (70-99); POTASSIUM 4.9 MEQ/L (3.7-5.4); SAMPLE HEMOLYSIS CHECK 0; SAMPLE ICTERIC CHECK 0; SAMPLE LIPEMIA CHECK 0; SODIUM 131 MEQ/L (136-147); TOTAL BILIRUBIN 0.3 MG/DL (0.0-1.0); UREA NITROGEN (BUN) 46 mg/dL (9-23)
[2017-02-04 11:31] LABS: POINT-OF-CARE METER ID UU13113725
[2017-02-04 11:55] VITALS: BP 160/93
[2017-02-04 16:11] LABS: POINT-OF-CARE METER ID UU13113725
[2017-02-04 16:17] VITALS: BP 150/92
[2017-02-05 01:28] VITALS: BP 171/93
[2017-02-05 06:48] LABS: POINT-OF-CARE METER ID UU13113725
[2017-02-05 07:46] VITALS: BP 158/98
[2017-02-05 11:19] LABS: POINT-OF-CARE METER ID UU13113725
[2017-02-05 11:22] VITALS: BP 160/96
[2017-02-05 16:18] LABS: POINT-OF-CARE METER ID UU13113725
[2017-02-05 16:19] VITALS: BP 142/82
[2017-02-06 00:07] VITALS: BP 134/76
[2017-02-06 02:32] LABS: POINT-OF-CARE METER ID UU13113725
[2017-02-06 05:14] LABS: POINT-OF-CARE METER ID UU13113725
[2017-02-06] MEDS ORDERED: ZYVOX600 MG PO (07:45)
[2017-02-06] MEDS ORDERED: DULOXETINE HCL60 MG PO (07:45)
[2017-02-06] MEDS ORDERED: LEVOTHYROXINE25 MCG PO (07:45)
[2017-02-06 08:21] LABS: EOSINOPHIL (%) 5.3 % (0-5); EOSINOPHIL COUNT 0.6 K/uL (0-0.3); HEMATOCRIT 29.2 % (38.0-50.0); IMMATURE GRANULOCYTE (%) 0.6 % (0.0-0.7); IMMATURE GRANULOCYTE COUNT 0.1 K/uL; INSTRUMENT ABS NEUTROPHIL CT 6.7 K/uL; LYMPHOCYTE COUNT 1.8 K/uL (1.0-2.8); MCH 30.8 PG (29.0-34.0); MCHC 32.2 G/DL (30.0-36.0); MCV 95.7 FL (86-99); MEAN PLAT.VOLUME 9.8 uM^3 (9.0-12.4); MONOCYTE (%) 12.5 % (3-12); MONOCYTE COUNT 1.3 K/uL (0-0.8); NEUTROPHIL (%) 64.4 % (45-76); NEUTROPHIL COUNT 6.7 K/uL (1.8-6.4); PLATELET COUNT 390 K/uL (156-360); RBC DIS.WIDTH-CV 17.2 % (11.8-14.6); RBC DIS.WIDTH-SD 59.3 % (39-53); RED BLOOD COUNT 3.05 M/uL (4.00-5.50); WHITE BLOOD COUNT 10.5 K/uL (4.1-10.2)
[2017-02-06 08:57] LABS: ALKALINE PHOSPHATASE 99 IU/L (3-129); ANION GAP 13 MEQ/L (2-14); CHLORIDE 93 MEQ/L (99-109); GFR ESTIMATE (CALCULATED) 10 mL/min/; GLUCOSE 101 mg/dL (70-99); POTASSIUM 4.2 MEQ/L (3.7-5.4); SAMPLE HEMOLYSIS CHECK 0; SAMPLE ICTERIC CHECK 0; SAMPLE LIPEMIA CHECK 0; SODIUM 131 MEQ/L (136-147); TOTAL BILIRUBIN 0.3 MG/DL (0.0-1.0); UREA NITROGEN (BUN) 40 mg/dL (9-23)
[2017-02-06 12:01] LABS: POINT-OF-CARE METER ID UU13113725
[2017-02-06 15:34] LABS: POINT-OF-CARE METER ID UU13113725
[2017-02-06 15:43] VITALS: BP 160/86
== END 2017-02-06 20:52 | disposition home health service (06) | DRG 853 ==
LOC: EME 01:52 → 4EAST 05:02 → 5EAST 05:02 → EDOF 05:02 → 4WEST 05:02 → 4EAST 01-16 23:49 → 5EAST 01-24 22:01
PROVIDERS: Emergency Medicine; Internal Medicine; Internal Medicine Nephrology; Internal Medicine Pulmonary Disease; Nurse Practitioner Adult Health; Pediatrics; Physician Assistant; Physician Assistant Medical; Radiology Diagnostic Radiology
DX: A41.9 Sepsis, unspecified organism (principal); J85.1 Abscess of lung with pneumonia; E13.10 Other specified diabetes mellitus with ketoacidosis without coma; B95.61 Methicillin susceptible Staphylococcus aureus infection as the cause of diseases classified elsewhere; J96.91 Respiratory failure, unspecified with hypoxia; R65.20 Severe sepsis without septic shock; J98.09 Other diseases of bronchus, not elsewhere classified; J90 Pleural effusion, not elsewhere classified; E87.1 Hypo-osmolality and hyponatremia; G93.41 Metabolic encephalopathy; I13.2 Hypertensive heart and chronic kidney disease with heart failure and with stage 5 chronic kidney disease, or end stage renal disease; N18.6 End stage renal disease; I50.32 Chronic diastolic (congestive) heart failure; J98.11 Atelectasis; N25.81 Secondary hyperparathyroidism of renal origin; E46 Unspecified protein-calorie malnutrition; D63.1 Anemia in chronic kidney disease; E11.22 Type 2 diabetes mellitus with diabetic chronic kidney disease; I42.9 Cardiomyopathy, unspecified; E55.9 Vitamin D deficiency, unspecified; E03.9 Hypothyroidism, unspecified; E78.5 Hyperlipidemia, unspecified; F41.9 Anxiety disorder, unspecified; F43.21 Adjustment disorder with depressed mood; G89.29 Other chronic pain; K59.03 Drug induced constipation; T40.605A Adverse effect of unspecified narcotics, initial encounter; Z83.3 Family history of diabetes mellitus; Z87.891 Personal history of nicotine dependence; Z99.2 Dependence on renal dialysis
CPT/HCPCS: 32557; 36600; 70450; 71010; 71020; 71275; 74150; 76705; 76942; 80048 91; 80053; 80069; 80076; 80202; 82010; 82140; 82272; 82607; 82746; 82800; 82803; 82945; 82947; 82947 91; 82948; 83036; 83540; 83605; 83615; 83615 91; 83690; 83970; 84100; 84155; 84157; 84443; 84466; 84484; 84999; 85014; 85018; 85025; 85027; 85379; 85610; 85730; 86900; 86901; 86920; 87040; 87070; 87075; 87077; 87116; 87147; 87205; 87206; 87641; 88108; 88304; 88305; 88312; 89051; 93005; 94010; 94640; 94640 76; 94667; 94668; 94799; 97530 GO; 97530 GP; 99202; 99281; 99285; C1729; C1769; J0330; J0690; J0696; J0881; J1100; J1170; J1644; J1815; J2250; J2270; J2405; J2543; J2710; J3010; J3260; J3370; J7030; J7050; P9016

== ENCOUNTER 2017-03-16 07:50 | Inpatient (IN) | payer OTHER ==
[2017-03-16] VITALS (7 sets, daily range): BP systolic 110–182; BP diastolic 75–105
[~2017-03-16] VITALS: Ht 188 cm; Wt 97.6 kg
[~2017-03-16 07:50] MED LIST changes: +AMBIEN10 MG PO; +CALCITRIOL0.5 MCG PO; +CALPHRON667 MG PO; +COLACE100 MG PO; +DULOXETINE HCL60 MG PO; +FISH OIL 1,0001 EAC7 PO; +GENTAMICIN SULF30 GM TP; +LEVOTHYROXINE25 MCG PO; +MINOXIDIL2.5 MG PO; +NEURONTIN100 MG PO; +NOVOLIN N100 UNITS/ SC; +ONDANSETRON HCL4 MG PO; +SENSIPAR30 MG PO; +TYLENOL WITH C1 EACH PO; +VENLAFAXINE HCL75 MG PO; +VITAMIN D-32000 UNI2 PO; +ZYVOX600 MG PO
[2017-03-16 08:44] LABS: EOSINOPHIL (%) 1.1 % (0-5); EOSINOPHIL COUNT 0.1 K/uL (0-0.3); HEMATOCRIT 22.6 % (38.0-50.0); IMMATURE GRANULOCYTE (%) 0.5 % (0.0-0.7); IMMATURE GRANULOCYTE COUNT 0.1 K/uL; INSTRUMENT ABS NEUTROPHIL CT 9.8 K/uL; LYMPHOCYTE COUNT 1.7 K/uL (1.0-2.8); MCH 29.9 PG (29.0-34.0); MCHC 32.3 G/DL (30.0-36.0); MCV 92.6 FL (86-99); MEAN PLAT.VOLUME 11.9 uM^3 (9.0-12.4); MONOCYTE (%) 11.8 % (3-12); MONOCYTE COUNT 1.6 K/uL (0-0.8); NEUTROPHIL (%) 73.6 % (45-76); NEUTROPHIL COUNT 9.8 K/uL (1.8-6.4); PLATELET COUNT 227 K/uL (156-360); RBC DIS.WIDTH-SD 56.3 % (39-53); RED BLOOD COUNT 2.44 M/uL (4.00-5.50); WHITE BLOOD COUNT 13.3 K/uL (4.1-10.2)
[2017-03-16 08:49] LABS: COMMENTS - BLOOD GASES NEG A+C+; DEVICE RA; SITE RR; TOTAL RESP RATE 18 resp/min
[2017-03-16 08:49] LABS: INTER. NORMALIZED RATIO 1.1
[2017-03-16 08:50] LABS: PCO2 39 mm Hg (35-45); PO2 55 mm Hg (80-100); pH 7.36 (7.35-7.45)
[2017-03-16 08:51] LABS: BASE EXCESS -3.2 mEq/L (-3 to +3); BICARBONATE 22 mEq/L (22-26); CARBOXY HGB 2.5 % (0-5); METHEMOGLOBIN 1.2 % (0-1.5)
[2017-03-16 08:52] LABS: PTT 31.1 SEC (25-37)
[2017-03-16 08:54] LABS: CHLORIDE 89 mEq/L (99-109); POTASSIUM 3.9 mEq/L (3.7-5.4); SODIUM 127 mEq/L (136-147)
[2017-03-16 08:57] LABS: ANION GAP 21 MEQ/L (2-14)
[2017-03-16 08:58] LABS: TOTAL BILIRUBIN 0.3 mg/dL (0.0-1.0)
[2017-03-16 08:59] LABS: SERUM ETHYL ALCOHOL < 10 mg/dL
[2017-03-16 09:00] LABS: ALKALINE PHOSPHATASE 94 IU/L (3-129); GFR ESTIMATE (CALCULATED) 6 mL/min/
[2017-03-16 09:01] LABS: UREA NITROGEN (BUN) 82 mg/dL (9-23)
[2017-03-16 09:02] LABS: DIRECT BILIRUBIN 0.2 mg/dL (0.0-0.3)
[2017-03-16 09:04] LABS: GLUCOSE 697 mg/dL (70-99)
[2017-03-16 09:05] LABS: TROP-I INTERPRETATION INDETERMINATE; TROPONIN-I 0.35 ng/mL (0.0-0.30)
[2017-03-16 13:20] LABS: POINT-OF-CARE METER ID UU13113747
[2017-03-16 15:53] LABS: POTASSIUM 3.3 mEq/L (3.7-5.4); SODIUM 130 mEq/L (136-147)
[2017-03-16 15:55] LABS: CHLORIDE 98 mEq/L (99-109); GLUCOSE 521 mg/dL (70-99)
[2017-03-16 15:57] LABS: ANION GAP 18 MEQ/L (2-14)
[2017-03-16 15:59] LABS: GFR ESTIMATE (CALCULATED) 7 mL/min/
[2017-03-16 16:00] LABS: UREA NITROGEN (BUN) 74 mg/dL (9-23)
[2017-03-16 16:03] LABS: Estimated Average Glucose 289 mg/dL (70-123); HEMOGLOBIN A1c (GLYCOHEMOGLOB) 11.7 % HGB (Below 5.7)
[2017-03-16 18:31] LABS: METH RESISTANT S AUREUS PCR NEGATIVE (NEGATIVE)
[2017-03-16 18:36] LABS: PROBE CHECK PASS; SPECIMEN PROCESSING CONTROL PASS
[2017-03-16 19:01] LABS: POINT-OF-CARE METER ID UU14162636
[2017-03-16 20:12] LABS: POINT-OF-CARE METER ID UU14162636
[2017-03-16 20:13] LABS: ANION GAP 19 MEQ/L (2-14); CHLORIDE 92 MEQ/L (99-109); GFR ESTIMATE (CALCULATED) 7 mL/min/; GLUCOSE 268 mg/dL (70-99); POTASSIUM 3.2 MEQ/L (3.7-5.4); SAMPLE HEMOLYSIS CHECK 0; SAMPLE ICTERIC CHECK 0; SAMPLE LIPEMIA CHECK 0; SODIUM 129 MEQ/L (136-147); UREA NITROGEN (BUN) 83 mg/dL (9-23)
[2017-03-16 20:39] LABS: POINT-OF-CARE METER ID UU14162636
[2017-03-16 21:02] LABS: POINT-OF-CARE METER ID UU14162636
[2017-03-16 21:59] LABS: POINT-OF-CARE METER ID UU14162636
[2017-03-16 22:17] LABS: TROP-I INTERPRETATION INDETERMINATE; TROPONIN-I 0.35 ng/mL (0.0-0.30)
[2017-03-16 23:51] LABS: POINT-OF-CARE METER ID UU14162636
[2017-03-16 23:51] LABS: POINT-OF-CARE METER ID UU14162636
[2017-03-17] VITALS (19 sets, daily range): BP systolic 0–199; BP diastolic 0–127
[2017-03-17 00:16] LABS: POINT-OF-CARE METER ID UU14162636
[2017-03-17 01:02] LABS: CHLORIDE 97 mEq/L (99-109); POTASSIUM 3.6 mEq/L (3.7-5.4); SODIUM 132 mEq/L (136-147)
[2017-03-17 01:07] LABS: GFR ESTIMATE (CALCULATED) 7 mL/min/
[2017-03-17 01:18] LABS: POINT-OF-CARE METER ID UU14174217
[2017-03-17 01:26] LABS: ANION GAP 19 MEQ/L (2-14)
[2017-03-17 01:29] LABS: UREA NITROGEN (BUN) 70 mg/dL (9-23)
[2017-03-17 01:38] LABS: GLUCOSE 96 mg/dL (70-99)
[2017-03-17 02:14] LABS: POINT-OF-CARE METER ID UU14174217
[2017-03-17 03:11] LABS: POINT-OF-CARE METER ID UU14174217
[2017-03-17 04:10] LABS: POINT-OF-CARE METER ID UU14174217
[2017-03-17 05:13] LABS: POINT-OF-CARE METER ID UU14174217
[2017-03-17 06:06] LABS: TROP-I INTERPRETATION INDETERMINATE; TROPONIN-I 0.34 ng/mL (0.0-0.30)
[2017-03-17 06:10] LABS: POINT-OF-CARE METER ID UU14174217
[2017-03-17 06:21] LABS: ANION GAP 17 MEQ/L (2-14); CHLORIDE 93 MEQ/L (99-109); GFR ESTIMATE (CALCULATED) 7 mL/min/; GLUCOSE 124 mg/dL (70-99); IRON 18 MCG/DL (35-150); POTASSIUM 3.6 MEQ/L (3.7-5.4); SAMPLE HEMOLYSIS CHECK 0; SAMPLE ICTERIC CHECK 0; SAMPLE LIPEMIA CHECK 0; SODIUM 133 MEQ/L (136-147); UREA NITROGEN (BUN) 76 mg/dL (9-23)
[2017-03-17 06:22] LABS: ANION GAP 16 MEQ/L (2-14); CHLORIDE 93 MEQ/L (99-109); GFR ESTIMATE (CALCULATED) 7 mL/min/; GLUCOSE 125 mg/dL (70-99); POTASSIUM 3.6 MEQ/L (3.7-5.4); SAMPLE HEMOLYSIS CHECK 0; SAMPLE ICTERIC CHECK 0; SAMPLE LIPEMIA CHECK 0; SODIUM 132 MEQ/L (136-147); UREA NITROGEN (BUN) 76 mg/dL (9-23)
[2017-03-17 07:06] LABS: POINT-OF-CARE METER ID UU14174217
[2017-03-17 08:00] LABS: FERRITIN 291 NG/ML (22-322)
[2017-03-17 08:11] LABS: POINT-OF-CARE METER ID UU13113803
[2017-03-17 08:27] LABS: ANION GAP 15 MEQ/L (2-14); CHLORIDE 94 MEQ/L (99-109); POTASSIUM 3.5 MEQ/L (3.7-5.4); SAMPLE HEMOLYSIS CHECK 0; SAMPLE ICTERIC CHECK 0; SAMPLE LIPEMIA CHECK 0; SODIUM 132 MEQ/L (136-147)
[2017-03-17 08:32] LABS: GFR ESTIMATE (CALCULATED) 7 mL/min/; GLUCOSE 163 mg/dL (70-99); UREA NITROGEN (BUN) 75 mg/dL (9-23)
[2017-03-17 08:37] LABS: BASOPHIL COUNT 0.1 K/uL (0-0.1); EOSINOPHIL (%) 2.5 % (0-5); EOSINOPHIL COUNT 0.4 K/uL (0-0.3); HEMATOCRIT 22.7 % (38.0-50.0); IMMATURE GRANULOCYTE (%) 0.5 % (0.0-0.7); IMMATURE GRANULOCYTE COUNT 0.1 K/uL; LYMPHOCYTE COUNT 1.7 K/uL (1.0-2.8); MCH 29.4 PG (29.0-34.0); MCHC 32.2 G/DL (30.0-36.0); MCV 91.5 FL (86-99); MEAN PLAT.VOLUME 12.4 uM^3 (9.0-12.4); MONOCYTE (%) 8.7 % (3-12); MONOCYTE COUNT 1.4 K/uL (0-0.8); NEUTROPHIL (%) 77.2 % (45-76); PLATELET COUNT 247 K/uL (156-360); RBC DIS.WIDTH-CV 16.8 % (11.8-14.6); RBC DIS.WIDTH-SD 56.3 % (39-53); RED BLOOD COUNT 2.48 M/uL (4.00-5.50); WHITE BLOOD COUNT 15.5 K/uL (4.1-10.2)
[2017-03-17 09:10] LABS: POINT-OF-CARE METER ID UU13113747
[2017-03-17 09:10] LABS: POINT-OF-CARE METER ID UU13113747
[2017-03-17 09:10] LABS: POINT-OF-CARE METER ID UU14162636
[2017-03-17 09:22] LABS: POINT-OF-CARE METER ID UU13113803
[2017-03-17 10:37] LABS: TROP-I INTERPRETATION NEGATIVE; TROPONIN-I 0.27 ng/mL (0.0-0.30)
[2017-03-17 10:48] LABS: INTACT PARATHYROID HORMONE 340 pg/mL (10-69)
[2017-03-17 10:49] LABS: POINT-OF-CARE METER ID UU13113803
[2017-03-17 12:58] LABS: POINT-OF-CARE METER ID UU13113803
[2017-03-17 13:46] LABS: ANION GAP 16 MEQ/L (2-14); CHLORIDE 94 MEQ/L (99-109); GFR ESTIMATE (CALCULATED) 8 mL/min/; GLUCOSE 125 mg/dL (70-99); POTASSIUM 3.5 MEQ/L (3.7-5.4); SAMPLE HEMOLYSIS CHECK 0; SAMPLE ICTERIC CHECK 0; SAMPLE LIPEMIA CHECK 0; SODIUM 132 MEQ/L (136-147); UREA NITROGEN (BUN) 74 mg/dL (9-23)
[2017-03-17 15:10] LABS: POINT-OF-CARE METER ID UU13113803
[2017-03-17 15:54] LABS: POINT-OF-CARE METER ID UU13113803
[2017-03-17 16:20] LABS: POINT-OF-CARE METER ID UU13113803
[2017-03-17 17:09] LABS: POINT-OF-CARE METER ID UU14174217
[2017-03-17 18:34] LABS: POINT-OF-CARE METER ID UU13113803
[2017-03-17 19:19] LABS: POINT-OF-CARE METER ID UU14174217
[2017-03-17 20:40] LABS: POINT-OF-CARE METER ID UU13113803
[2017-03-17 21:42] LABS: POINT-OF-CARE METER ID UU13113803
[2017-03-17 22:38] LABS: POINT-OF-CARE METER ID UU13113803
[2017-03-17 23:33] LABS: POINT-OF-CARE METER ID UU13113803
[2017-03-18] VITALS (19 sets, daily range): BP systolic 84–150; BP diastolic 61–91
[2017-03-18 00:35] LABS: POINT-OF-CARE METER ID UU13113803
[2017-03-18 01:58] LABS: POINT-OF-CARE METER ID UU14162636; POINT-OF-CARE USER ID 609231305
[2017-03-18 03:38] LABS: POINT-OF-CARE METER ID UU14162636
[2017-03-18 05:36] LABS: BASOPHIL COUNT 0.1 K/uL (0-0.1); EOSINOPHIL COUNT 0.4 K/uL (0-0.3); HEMATOCRIT 21.6 % (38.0-50.0); IMMATURE GRANULOCYTE (%) 0.5 % (0.0-0.7); IMMATURE GRANULOCYTE COUNT 0.1 K/uL; INSTRUMENT ABS NEUTROPHIL CT 10.9 K/uL; LYMPHOCYTE COUNT 1.4 K/uL (1.0-2.8); MCH 30.1 PG (29.0-34.0); MCHC 32.9 G/DL (30.0-36.0); MCV 91.5 FL (86-99); MEAN PLAT.VOLUME 12.1 uM^3 (9.0-12.4); MONOCYTE (%) 9.1 % (3-12); MONOCYTE COUNT 1.3 K/uL (0-0.8); NEUTROPHIL (%) 77.4 % (45-76); NEUTROPHIL COUNT 10.9 K/uL (1.8-6.4); PLATELET COUNT 254 K/uL (156-360); RBC DIS.WIDTH-CV 16.7 % (11.8-14.6); RBC DIS.WIDTH-SD 54.6 % (39-53); RED BLOOD COUNT 2.36 M/uL (4.00-5.50); WHITE BLOOD COUNT 14.1 K/uL (4.1-10.2)
[2017-03-18 05:37] LABS: POINT-OF-CARE METER ID UU14162636
[2017-03-18 05:53] LABS: ANION GAP 16 MEQ/L (2-14); CHLORIDE 93 MEQ/L (99-109); GFR ESTIMATE (CALCULATED) 8 mL/min/; GLUCOSE 150 mg/dL (70-99); MAGNESIUM 1.6 mg/dl (1.3-2.7); POTASSIUM 3.4 MEQ/L (3.7-5.4); SAMPLE HEMOLYSIS CHECK 0; SAMPLE ICTERIC CHECK 0; SAMPLE LIPEMIA CHECK 0; SODIUM 130 MEQ/L (136-147); UREA NITROGEN (BUN) 69 mg/dL (9-23)
[2017-03-18 05:57] LABS: ANION GAP 14 MEQ/L (2-14); CHLORIDE 93 MEQ/L (99-109); GFR ESTIMATE (CALCULATED) 8 mL/min/; GLUCOSE 173 mg/dL (70-99); POTASSIUM 3.5 MEQ/L (3.7-5.4); SAMPLE HEMOLYSIS CHECK 0; SAMPLE ICTERIC CHECK 0; SAMPLE LIPEMIA CHECK 0; SODIUM 131 MEQ/L (136-147); UREA NITROGEN (BUN) 68 mg/dL (9-23)
[2017-03-18 07:22] LABS: POINT-OF-CARE METER ID UU14162636
[2017-03-18 08:26] LABS: POINT-OF-CARE METER ID UU14162636
[2017-03-18 09:29] LABS: POINT-OF-CARE METER ID UU14162636
[2017-03-18 12:55] LABS: POINT-OF-CARE METER ID UU14162636
[2017-03-18 17:58] LABS: POINT-OF-CARE METER ID UU14162636
[2017-03-19] VITALS (8 sets, daily range): BP systolic 123–173; BP diastolic 64–96
[2017-03-19 06:33] LABS: HEMATOCRIT 21.1 % (38.0-50.0); MCH 31.3 PG (29.0-34.0); MCHC 34.1 G/DL (30.0-36.0); MCV 91.7 FL (86-99); PLATELET COUNT 270 K/uL (156-360); RBC DIS.WIDTH-CV 16.9 % (11.8-14.6); WHITE BLOOD COUNT 11.6 K/uL (4.1-10.2)
[2017-03-19 06:53] LABS: POINT-OF-CARE METER ID UU13113725
[2017-03-19 06:58] LABS: ANION GAP 12 MEQ/L (2-14); CHLORIDE 92 MEQ/L (99-109); CHLORIDE 93 MEQ/L (99-109); GFR ESTIMATE (CALCULATED) 8 mL/min/; POTASSIUM 3.5 MEQ/L (3.7-5.4); POTASSIUM 3.6 MEQ/L (3.7-5.4); SAMPLE HEMOLYSIS CHECK 0; SAMPLE ICTERIC CHECK 0; SAMPLE LIPEMIA CHECK 0; SODIUM 129 MEQ/L (136-147); SODIUM 130 MEQ/L (136-147); UREA NITROGEN (BUN) 67 mg/dL (9-23); UREA NITROGEN (BUN) 68 mg/dL (9-23)
[2017-03-19 06:59] LABS: GLUCOSE 265 mg/dL (70-99); GLUCOSE 272 mg/dL (70-99)
[2017-03-19 11:55] LABS: POINT-OF-CARE METER ID UU13113725
[2017-03-19] MEDS ORDERED: EFFEXOR XR75 MG PO (15:03)
[2017-03-19] MEDS ORDERED: NOVOLOG MI100 UNIT/3 SC (15:07)
[2017-03-19 15:51] LABS: POINT-OF-CARE METER ID UU13113725
[2017-03-20] VITALS (8 sets, daily range): BP systolic 138–169; BP diastolic 74–97
[2017-03-20 06:25] LABS: HEMATOCRIT 23.3 % (38.0-50.0); MCH 29.8 PG (29.0-34.0); MCHC 32.6 G/DL (30.0-36.0); MCV 91.4 FL (86-99); MEAN PLAT.VOLUME 11.9 uM^3 (9.0-12.4); PLATELET COUNT 278 K/uL (156-360); RBC DIS.WIDTH-CV 17.3 % (11.8-14.6); RBC DIS.WIDTH-SD 58.3 % (39-53); RED BLOOD COUNT 2.55 M/uL (4.00-5.50); WHITE BLOOD COUNT 11.7 K/uL (4.1-10.2)
[2017-03-20 06:46] LABS: ANION GAP 14 MEQ/L (2-14); CHLORIDE 95 MEQ/L (99-109); GFR ESTIMATE (CALCULATED) 9 mL/min/; GLUCOSE 144 mg/dL (70-99); POTASSIUM 3.4 MEQ/L (3.7-5.4); SAMPLE HEMOLYSIS CHECK 0; SAMPLE ICTERIC CHECK 0; SAMPLE LIPEMIA CHECK 0; SODIUM 131 MEQ/L (136-147); UREA NITROGEN (BUN) 61 mg/dL (9-23)
[2017-03-20 15:43] LABS: POINT-OF-CARE METER ID UU13113725
[2017-03-21 01:05] VITALS: BP 135/71
[2017-03-21 04:28] VITALS: BP 158/76
[2017-03-21 06:43] LABS: ANION GAP 12 MEQ/L (2-14); CHLORIDE 94 MEQ/L (99-109); GFR ESTIMATE (CALCULATED) 9 mL/min/; POTASSIUM 3.5 MEQ/L (3.7-5.4); SAMPLE HEMOLYSIS CHECK 0; SAMPLE ICTERIC CHECK 0; SAMPLE LIPEMIA CHECK 0; SODIUM 130 MEQ/L (136-147); UREA NITROGEN (BUN) 58 mg/dL (9-23)
[2017-03-21 06:48] LABS: GLUCOSE 222 mg/dL (70-99)
[2017-03-21 07:42] VITALS: BP 166/85
[2017-03-21 08:04] LABS: POINT-OF-CARE METER ID UU13113725
[2017-03-21 10:43] LABS: POINT-OF-CARE METER ID UU13113725
[2017-03-21 11:23] VITALS: BP 160/80
[2017-03-21 16:02] VITALS: BP 149/76
[2017-03-21 16:42] LABS: POINT-OF-CARE METER ID UU13113725
[2017-03-21 23:05] VITALS: BP 145/83
[2017-03-22 07:03] LABS: EOSINOPHIL (%) 3.4 % (0-5); EOSINOPHIL COUNT 0.4 K/uL (0-0.3); HEMATOCRIT 24.1 % (38.0-50.0); IMMATURE GRANULOCYTE (%) 0.6 % (0.0-0.7); IMMATURE GRANULOCYTE COUNT 0.1 K/uL; INSTRUMENT ABS NEUTROPHIL CT 8.7 K/uL; LYMPHOCYTE COUNT 2.2 K/uL (1.0-2.8); MCH 29.3 PG (29.0-34.0); MCV 91.6 FL (86-99); MEAN PLAT.VOLUME 11.3 uM^3 (9.0-12.4); MONOCYTE (%) 7.6 % (3-12); NEUTROPHIL (%) 70.4 % (45-76); NEUTROPHIL COUNT 8.7 K/uL (1.8-6.4); PLATELET COUNT 326 K/uL (156-360); RBC DIS.WIDTH-CV 16.8 % (11.8-14.6); RBC DIS.WIDTH-SD 56.9 % (39-53); RED BLOOD COUNT 2.63 M/uL (4.00-5.50); WHITE BLOOD COUNT 12.4 K/uL (4.1-10.2)
[2017-03-22 07:27] LABS: ALKALINE PHOSPHATASE 69 IU/L (3-129); ANION GAP 12 MEQ/L (2-14); CHLORIDE 95 MEQ/L (99-109); CHLORIDE 96 MEQ/L (99-109); GFR ESTIMATE (CALCULATED) 9 mL/min/; GLUCOSE 189 mg/dL (70-99); POTASSIUM 3.4 MEQ/L (3.7-5.4); POTASSIUM 3.5 MEQ/L (3.7-5.4); SAMPLE HEMOLYSIS CHECK 0; SAMPLE ICTERIC CHECK 0; SAMPLE LIPEMIA CHECK 0; SODIUM 132 MEQ/L (136-147); SODIUM 133 MEQ/L (136-147); TOTAL BILIRUBIN 0.3 MG/DL (0.0-1.0); UREA NITROGEN (BUN) 55 mg/dL (9-23); UREA NITROGEN (BUN) 56 mg/dL (9-23)
[2017-03-22 08:13] VITALS: BP 172/87
[2017-03-22] MEDS ORDERED: HYDROCHLOROTHIA25 MG PO (09:59)
[2017-03-22 10:28] VITALS: BP 160/82
[2017-03-22 11:27] LABS: POINT-OF-CARE METER ID UU13113725
[2017-03-22 16:27] VITALS: BP 140/75
== END 2017-03-22 19:55 | disposition home health service (06) | DRG 637 ==
LOC: EME → EDBD 07:50 → 5EAST 16:06 → EDOF 16:06 → 4WEST 16:06 → ENRESERV 16:08 → 4WEST 17:06 → ENRESERV 03-18 17:31 → 5EAST 03-18 21:00 → ENPENDDIS 03-22 → EDPENDDIS 03-22 → 5EAST 03-22 19:55
PROVIDERS: Emergency Medicine; Hospitalist; Internal Medicine; Internal Medicine Nephrology; Nurse Practitioner Adult Health; Specialist
PROC: 3E1M39Z Irrigation of Peritoneal Cavity using Dialysate, Percutaneous Approach (ICD-10-PCS; principal; 2017-03-16)
PROC: 5A09357 Assistance with Respiratory Ventilation, Less than 24 Consecutive Hours, Continuous Positive Airway Pressure (ICD-10-PCS; 2017-03-17)
PROC: 30233N1 Transfusion of Nonautologous Red Blood Cells into Peripheral Vein, Percutaneous Approach (ICD-10-PCS; 2017-03-19)
DX: E11.65 Type 2 diabetes mellitus with hyperglycemia (principal); R53.83 Other fatigue; T40.2X5A Adverse effect of other opioids, initial encounter; S40.022A Contusion of left upper arm, initial encounter; W19.XXXA Unspecified fall, initial encounter; I13.2 Hypertensive heart and chronic kidney disease with heart failure and with stage 5 chronic kidney disease, or end stage renal disease; I50.32 Chronic diastolic (congestive) heart failure; E11.21 Type 2 diabetes mellitus with diabetic nephropathy; E11.22 Type 2 diabetes mellitus with diabetic chronic kidney disease; N18.6 End stage renal disease; N25.81 Secondary hyperparathyroidism of renal origin; D63.1 Anemia in chronic kidney disease; E11.42 Type 2 diabetes mellitus with diabetic polyneuropathy; E78.5 Hyperlipidemia, unspecified; E83.39 Other disorders of phosphorus metabolism; E83.51 Hypocalcemia; E87.6 Hypokalemia; E87.1 Hypo-osmolality and hyponatremia; E55.9 Vitamin D deficiency, unspecified; G47.33 Obstructive sleep apnea (adult) (pediatric); G89.29 Other chronic pain; I42.9 Cardiomyopathy, unspecified; R29.6 Repeated falls; D50.9 Iron deficiency anemia, unspecified; R74.8 Abnormal levels of other serum enzymes; Z79.4 Long term (current) use of insulin; Z87.891 Personal history of nicotine dependence; Z99.2 Dependence on renal dialysis
CPT/HCPCS: 36600; 70450; 71010; 71020; 73060; 73080; 80048; 80048 91; 80053; 80069; 80076; 80202; 81003; 82010; 82728; 82803; 82948; 83036; 83540; 83735; 83880; 83970; 84100; 84466; 84484; 85025; 85027; 85610; 85730; 86850; 86900; 86901; 86920; 87641; 93005; 93971; 94660; 94799; 97530 GO; 97530 GP; 99281; 99285; G0480; J0881; J1644; J1756; J1815; J2310; J2543; J3370; J7030; J7050; P9016

== ENCOUNTER 2017-03-27 15:23 | Inpatient (IN) | payer OTHER ==
[~2017-03-27] VITALS: Ht 188 cm; Wt 95.4 kg
[~2017-03-27 15:23] MED LIST changes: +EFFEXOR XR75 MG PO; +NOVOLOG MI100 UNIT/3 SC
[2017-03-27 15:57] LABS: EOSINOPHIL (%) 0.2 % (0-5); HEMATOCRIT 24.9 % (38.0-50.0); IMMATURE GRANULOCYTE (%) 0.6 % (0.0-0.7); IMMATURE GRANULOCYTE COUNT 0.1 K/uL; INSTRUMENT ABS NEUTROPHIL CT 16.3 K/uL; LYMPHOCYTE COUNT 1.7 K/uL (1.0-2.8); MCH 29.7 PG (29.0-34.0); MCHC 31.3 G/DL (30.0-36.0); MCV 94.7 FL (86-99); MEAN PLAT.VOLUME 10.8 uM^3 (9.0-12.4); MONOCYTE (%) 4.2 % (3-12); MONOCYTE COUNT 0.8 K/uL (0-0.8); NEUTROPHIL COUNT 16.3 K/uL (1.8-6.4); NRBC (%) 0.2 /100 WBC (0-0); PLATELET COUNT 321 K/uL (156-360); RBC DIS.WIDTH-CV 17.3 % (11.8-14.6); RBC DIS.WIDTH-SD 60.3 % (39-53); RED BLOOD COUNT 2.63 M/uL (4.00-5.50); WHITE BLOOD COUNT 18.9 K/uL (4.1-10.2)
[2017-03-27 16:19] LABS: CHLORIDE 97 mEq/L (99-109); SODIUM 136 mEq/L (136-147)
[2017-03-27 16:20] LABS: POTASSIUM 4.4 mEq/L (3.7-5.4)
[2017-03-27 16:21] LABS: GLUCOSE 166 mg/dL (70-99)
[2017-03-27 16:22] LABS: ANION GAP 19 MEQ/L (2-14)
[2017-03-27 16:23] LABS: TOTAL BILIRUBIN 0.2 mg/dL (0.0-1.0)
[2017-03-27 16:25] LABS: ALKALINE PHOSPHATASE 107 IU/L (3-129); GFR ESTIMATE (CALCULATED) 6 mL/min/
[2017-03-27 16:26] LABS: UREA NITROGEN (BUN) 73 mg/dL (9-23)
[2017-03-27] MEDS ORDERED: ROCALTROL0.25 MCG PO (19:22)
[2017-03-27] MEDS ORDERED: LO-DOSE ASPIRIN81 M2 PO (19:23)
[2017-03-27] MEDS ORDERED: DIOVAN320 MG PO (19:24)
[2017-03-27] MEDS ORDERED: NEURONTIN100 MG PO (19:33)
[2017-03-27] MEDS ORDERED: K-DUR20 MEQ PO (19:37)
[2017-03-27 19:41] LABS: C DIFF TOXIN POSITIVE (NEGATIVE)
[2017-03-27 19:45] LABS: PROBE CHECK PASS
[2017-03-27 23:48] VITALS: BP 127/72
[2017-03-28 03:36] VITALS: BP 122/64
[2017-03-28 06:54] LABS: EOSINOPHIL COUNT 0.2 K/uL (0-0.3); HEMATOCRIT 23.9 % (38.0-50.0); IMMATURE GRANULOCYTE (%) 0.6 % (0.0-0.7); IMMATURE GRANULOCYTE COUNT 0.1 K/uL; INSTRUMENT ABS NEUTROPHIL CT 16.6 K/uL; LYMPHOCYTE COUNT 1.9 K/uL (1.0-2.8); MCH 31.2 PG (29.0-34.0); MCHC 32.2 G/DL (30.0-36.0); MCV 96.8 FL (86-99); MEAN PLAT.VOLUME 11.2 uM^3 (9.0-12.4); MONOCYTE (%) 5.2 % (3-12); NEUTROPHIL (%) 83.3 % (45-76); NEUTROPHIL COUNT 16.6 K/uL (1.8-6.4); PLATELET COUNT 362 K/uL (156-360); RBC DIS.WIDTH-CV 17.5 % (11.8-14.6); RBC DIS.WIDTH-SD 62.2 % (39-53); RED BLOOD COUNT 2.47 M/uL (4.00-5.50)
[2017-03-28 06:56] LABS: POINT-OF-CARE METER ID UU13113725
[2017-03-28 07:30] LABS: ALKALINE PHOSPHATASE 102 IU/L (3-129); ANION GAP 16 MEQ/L (2-14); CHLORIDE 101 MEQ/L (99-109); GFR ESTIMATE (CALCULATED) 7 mL/min/; GLUCOSE 26 mg/dL (70-99); POTASSIUM 4.2 MEQ/L (3.7-5.4); SAMPLE HEMOLYSIS CHECK 0; SAMPLE ICTERIC CHECK 0; SAMPLE LIPEMIA CHECK 0; SODIUM 140 MEQ/L (136-147); TOTAL BILIRUBIN 0.3 MG/DL (0.0-1.0); UREA NITROGEN (BUN) 68 mg/dL (9-23)
[2017-03-28 07:44] VITALS: BP 113/67
[2017-03-28 11:19] VITALS: BP 136/72
[2017-03-28 11:54] LABS: POINT-OF-CARE METER ID UU13113725
[2017-03-28 11:56] LABS: POINT-OF-CARE METER ID UU13113725
[2017-03-28 12:43] LABS: POINT-OF-CARE METER ID UU13113725
[2017-03-28 13:41] LABS: POINT-OF-CARE METER ID UU13113725
[2017-03-28 15:21] LABS: BICARBONATE 23.7 mEq/L (22-26); CARBOXY HGB 2.2 % (0-5); METHEMOGLOBIN 1.3 % (0-1.5); pH 7.34 (7.35-7.45)
[2017-03-28 15:22] LABS: COMMENTS - BLOOD GASES A+C+; DEVICE NC; O2 FLOW 2 L/MIN; PCO2 44 mm Hg (35-45); PO2 80 mm Hg (80-100); SITE RR; TOTAL RESP RATE 18 resp/min
[2017-03-28 15:26] VITALS: BP 140/81
[2017-03-28 16:23] LABS: POINT-OF-CARE METER ID UU13113725
[2017-03-28 21:04] LABS: POINT-OF-CARE METER ID UU13113725
[2017-03-28 22:34] VITALS: BP 150/72
[2017-03-29 04:02] VITALS: BP 162/92
[2017-03-29 06:20] LABS: POINT-OF-CARE METER ID UU13113725
[2017-03-29 06:56] LABS: ANION GAP 15 MEQ/L (2-14); CHLORIDE 99 MEQ/L (99-109); GFR ESTIMATE (CALCULATED) 7 mL/min/; POTASSIUM 4.1 MEQ/L (3.7-5.4); SAMPLE HEMOLYSIS CHECK 0; SAMPLE ICTERIC CHECK 0; SAMPLE LIPEMIA CHECK 0; SODIUM 138 MEQ/L (136-147); UREA NITROGEN (BUN) 69 mg/dL (9-23)
[2017-03-29 06:59] LABS: GLUCOSE 19 mg/dL (70-99)
[2017-03-29 07:24] VITALS: BP 161/95
[2017-03-29 09:14] LABS: POINT-OF-CARE METER ID UU13113725
[2017-03-29 11:07] VITALS: BP 180/90
[2017-03-29 11:43] LABS: POINT-OF-CARE METER ID UU13113725
[2017-03-29 15:57] VITALS: BP 135/78
[2017-03-29 16:21] LABS: POINT-OF-CARE METER ID UU13113725
[2017-03-29 16:54] LABS: POINT-OF-CARE METER ID UU13113725
[2017-03-29 17:30] LABS: POINT-OF-CARE METER ID UU13113725
[2017-03-29 19:16] VITALS: BP 142/78
[2017-03-29 20:59] LABS: POINT-OF-CARE METER ID UU13113725
[2017-03-29 22:24] VITALS: BP 161/84
[2017-03-30 02:37] VITALS: BP 162/83
[2017-03-30 05:51] LABS: POINT-OF-CARE METER ID UU13113725
[2017-03-30 07:48] VITALS: BP 166/87
[2017-03-30 07:55] LABS: POINT-OF-CARE METER ID UU13113725
[2017-03-30 10:47] LABS: POINT-OF-CARE METER ID UU13113725
[2017-03-30 11:28] LABS: POINT-OF-CARE METER ID UU13113725
[2017-03-30 11:48] VITALS: BP 148/80
[2017-03-30 12:21] LABS: HEMATOCRIT 25.1 % (38.0-50.0); MCH 30.6 PG (29.0-34.0); MCHC 32.3 G/DL (30.0-36.0); MCV 94.7 FL (86-99); MEAN PLAT.VOLUME 11.4 uM^3 (9.0-12.4); NRBC (%) 0.2 /100 WBC (0-0); PLATELET COUNT 384 K/uL (156-360); RBC DIS.WIDTH-CV 16.7 % (11.8-14.6); RBC DIS.WIDTH-SD 57.5 % (39-53); RED BLOOD COUNT 2.65 M/uL (4.00-5.50); WHITE BLOOD COUNT 10.7 K/uL (4.1-10.2)
[2017-03-30 13:01] LABS: ANION GAP 15 MEQ/L (2-14); CHLORIDE 94 MEQ/L (99-109); GFR ESTIMATE (CALCULATED) 8 mL/min/; SAMPLE HEMOLYSIS CHECK 2; SAMPLE ICTERIC CHECK 0; SAMPLE LIPEMIA CHECK 0; UREA NITROGEN (BUN) 60 mg/dL (9-23)
[2017-03-30 13:03] LABS: GLUCOSE 283 mg/dL (70-99); POTASSIUM 5.3 MEQ/L (3.7-5.4); SODIUM 131 MEQ/L (136-147)
[2017-03-30 16:25] LABS: POINT-OF-CARE METER ID UU13113725
[2017-03-30 16:35] VITALS: BP 162/84
[2017-03-30 18:52] LABS: POINT-OF-CARE METER ID UU13113725
[2017-03-30 21:28] LABS: POINT-OF-CARE METER ID UU13113725
[2017-03-31] VITALS (7 sets, daily range): BP systolic 132–180; BP diastolic 76–96
[2017-03-31 00:17] LABS: TYPE OF FLUID PD FLUID
[2017-03-31 01:29] LABS: BODY FLUID RBC'S < 1000 /MM^3 (0-100); BODY FLUID WBC'S 15 /MM^3 (0-500)
[2017-03-31 03:02] LABS: BODY FLUID EOSINOPHILS 2 % (0-25); COMMENT NUMEROUS MACROPHAGES; MONO RAW COUNT 15; MONONUCLEAR WBC'S 34 %; POLY RAW COUNT 28; POLYNUCLEAR WBC'S 64 % (0-25)
[2017-03-31 06:52] LABS: HEMATOCRIT 25.6 % (38.0-50.0); MCH 29.2 PG (29.0-34.0); MCHC 31.3 G/DL (30.0-36.0); MCV 93.4 FL (86-99); MEAN PLAT.VOLUME 10.7 uM^3 (9.0-12.4); NRBC (%) 0.3 /100 WBC (0-0); PLATELET COUNT 376 K/uL (156-360); RBC DIS.WIDTH-CV 16.3 % (11.8-14.6); RBC DIS.WIDTH-SD 55.8 % (39-53); RED BLOOD COUNT 2.74 M/uL (4.00-5.50); WHITE BLOOD COUNT 11.1 K/uL (4.1-10.2)
[2017-03-31 07:47] LABS: ANION GAP 11 MEQ/L (2-14); CHLORIDE 94 MEQ/L (99-109); GFR ESTIMATE (CALCULATED) 7 mL/min/; GLUCOSE 366 mg/dL (70-99); POTASSIUM 4.5 MEQ/L (3.7-5.4); SAMPLE HEMOLYSIS CHECK 0; SAMPLE ICTERIC CHECK 0; SAMPLE LIPEMIA CHECK 0; SODIUM 130 MEQ/L (136-147); UREA NITROGEN (BUN) 61 mg/dL (9-23)
[2017-03-31 10:56] LABS: POINT-OF-CARE METER ID UU13113725
[2017-03-31 15:50] LABS: POINT-OF-CARE METER ID UU13113725
[2017-03-31 20:45] LABS: POINT-OF-CARE METER ID UU13113725
[2017-04-01] VITALS: BP 160/90
[2017-04-01 05:30] VITALS: BP 168/83
[2017-04-01 05:35] LABS: POINT-OF-CARE METER ID UU13113725
[2017-04-01 06:00] VITALS: BP 158/74
[2017-04-01 07:23] VITALS: BP 173/92
[2017-04-01] MEDS ORDERED: FLORASTOR250 MG PO (08:03)
[2017-04-01] MEDS ORDERED: K-DUR20 MEQ PO (08:03)
[2017-04-01] MEDS ORDERED: VANCOCIN HCL125 MG PO (08:03)
[2017-04-01] MEDS ORDERED: LONITEN2.5 MG PO (11:05)
[2017-04-01 11:59] LABS: POINT-OF-CARE METER ID UU13113725
== END 2017-04-01 17:12 | disposition home health service (06) | DRG 371 ==
LOC: EME 15:23 → EDOF 20:39 → 5EAST 20:39 → ENRESERV 20:41 → 5EAST 23:00 → ENPENDDIS 04-01 → 5EAST 04-01 17:12
PROVIDERS: Emergency Medicine; Internal Medicine; Internal Medicine Nephrology; Physician Assistant
PROC: 3E1M39Z Irrigation of Peritoneal Cavity using Dialysate, Percutaneous Approach (ICD-10-PCS; principal; 2017-03-28)
DX: A04.7 Enterocolitis due to Clostridium difficile (principal); N18.6 End stage renal disease; Z99.2 Dependence on renal dialysis; E11.22 Type 2 diabetes mellitus with diabetic chronic kidney disease; E03.9 Hypothyroidism, unspecified; E88.09 Other disorders of plasma-protein metabolism, not elsewhere classified; T85.611A Breakdown (mechanical) of intraperitoneal dialysis catheter, initial encounter; Y82.8 Other medical devices associated with adverse incidents; I12.0 Hypertensive chronic kidney disease with stage 5 chronic kidney disease or end stage renal disease; E11.21 Type 2 diabetes mellitus with diabetic nephropathy; J84.10 Pulmonary fibrosis, unspecified; I42.9 Cardiomyopathy, unspecified; Z87.891 Personal history of nicotine dependence; I95.9 Hypotension, unspecified; D50.8 Other iron deficiency anemias; D63.1 Anemia in chronic kidney disease; E55.9 Vitamin D deficiency, unspecified; Z79.4 Long term (current) use of insulin; E11.649 Type 2 diabetes mellitus with hypoglycemia without coma; E11.65 Type 2 diabetes mellitus with hyperglycemia; G93.41 Metabolic encephalopathy; E86.0 Dehydration; G89.29 Other chronic pain
CPT/HCPCS: 36600; 70450; 71010; 71020; 74020; 80053; 80069; 81003; 82140; 82803; 82948; 83605; 84443; 85025; 85027; 87040; 87070; 87205; 87449; 87493; 89051; 94799; 99202; 99281; 99285; J0456; J0881; J1644; J1756; J1815; J2543; J7030; J7040; J7050; J7070; S0030

== ENCOUNTER 2017-09-11 08:38 | Inpatient (IN) | payer OTHER ==
[2017-09-11] VITALS (12 sets, daily range): BP systolic 90–142; BP diastolic 57–81
[~2017-09-11] VITALS: Ht 188 cm; Wt 89.5 kg
[~2017-09-11 08:38] MED LIST changes: +DIOVAN160 MG PO; +FLORASTOR250 MG PO; +LO-DOSE ASPIRIN81 M2 PO; +LONITEN2.5 MG PO; +ROCALTROL0.25 MCG PO; +VANCOCIN HCL125 MG PO
[2017-09-11 09:32] LABS: HEMATOCRIT 30.3 % (38.0-50.0); HEMOGLOBIN 10.6 G/DL (12.5-16.6); MCH 29.6 PG (29.0-34.0); MCV 84.6 FL (86-99); PLATELET COUNT 354 K/uL (156-360); RBC DIS.WIDTH-CV 14.7 % (11.8-14.6); RBC DIS.WIDTH-SD 45.2 % (39-53); RED BLOOD COUNT 3.58 M/uL (4.00-5.50); WHITE BLOOD COUNT 13.5 K/uL (4.1-10.2)
[2017-09-11 09:38] LABS: ALBUMIN 2.5 g/dL (3.2-4.8); CHLORIDE 85 mEq/L (99-109); POTASSIUM 2.8 mEq/L (3.7-5.4); SODIUM 121 mEq/L (136-147)
[2017-09-11 09:41] LABS: TOTAL PROTEIN 6.9 g/dL (6.4-8.3)
[2017-09-11 09:42] LABS: TOTAL BILIRUBIN 0.2 mg/dL (0.0-1.0)
[2017-09-11 09:44] LABS: ALKALINE PHOSPHATASE 97 IU/L (3-129); CREATININE 8.8 mg/dL (0.6-1.3); GFR ESTIMATE (CALCULATED) 8 mL/min/ (58.99-99999)
[2017-09-11 09:45] LABS: UREA NITROGEN (BUN) 35 mg/dL (9-23)
[2017-09-11 09:46] LABS: AST (GOT) 10 IU/L (2-34)
[2017-09-11 09:47] LABS: ALT (GPT) 6 IU/L (3-49)
[2017-09-11 09:49] LABS: GLUCOSE 800 mg/dL (70-99)
[2017-09-11 10:56] LABS: TYPE OF FLUID PD FLUID
[2017-09-11] MEDS ORDERED: LABETALOL HCL200 MG PO (11:10)
[2017-09-11 11:24] LABS: HEMOGLOBIN A1c (GLYCOHEMOGLOB) 12.7 % (Below 5.7)
[2017-09-11] MEDS ORDERED: LONITEN2.5 MG PO (11:27)
[2017-09-11] MEDS ORDERED: CYMBALTA60 MG PO (11:38)
[2017-09-11] MEDS ORDERED: SLOW-MAG,MAG DE64 MG PO (11:42)
[2017-09-11 11:44] LABS: GLUCOSE 641 mg/dL (70-99)
[2017-09-11 11:45] LABS: BODY FLUID GLUCOSE 782 MG/DL; BODY FLUID LDH 488 IU/L; BODY FLUID PROTEIN < 3.0 G/DL
[2017-09-11] MEDS ORDERED: EXCEDRIN MIGRA1 EAC3 PO (11:46)
[2017-09-11 12:17] LABS: APPEARANCE CLEAR-YELLOW; BODY FLUID EOSINOPHILS 0 % (0-25); BODY FLUID RBC'S 3000 /MM^3 (0-100); BODY FLUID WBC'S 9370 /MM^3 (0-500); MONONUCLEAR WBC'S 5 %; POLYNUCLEAR WBC'S 95 % (0-25)
[2017-09-11 15:47] LABS: CHLORIDE 88 MEQ/L (99-109); CREATININE 8.3 MG/DL (0.6-1.3); GFR ESTIMATE (CALCULATED) 9 mL/min/ (58.99-99999); PHOSPHORUS 4.5 mg/dL (2.5-4.9); SODIUM 126 MEQ/L (136-147); UREA NITROGEN (BUN) 36 mg/dL (9-23)
[2017-09-11 16:02] LABS: GLUCOSE 171 mg/dL (70-99); POTASSIUM 2.4 MEQ/L (3.7-5.4)
[2017-09-11 20:14] LABS: CHLORIDE 89 MEQ/L (99-109); SODIUM 125 MEQ/L (136-147)
[2017-09-11 20:15] LABS: POTASSIUM 2.3 MEQ/L (3.7-5.4)
[2017-09-11 21:34] LABS: CREATININE 8.1 MG/DL (0.6-1.3); GFR ESTIMATE (CALCULATED) 9 mL/min/ (58.99-99999); GLUCOSE 147 mg/dL (70-99); UREA NITROGEN (BUN) 34 mg/dL (9-23)
[2017-09-11 21:35] LABS: PHOSPHORUS 4.4 mg/dL (2.5-4.9)
[2017-09-12] VITALS (24 sets, daily range): BP systolic 85–158; BP diastolic 51–92
[2017-09-12 00:44] LABS: CHLORIDE 91 mEq/L (99-109); SODIUM 126 mEq/L (136-147)
[2017-09-12 00:46] LABS: GLUCOSE 130 mg/dL (70-99)
[2017-09-12 00:49] LABS: PHOSPHORUS 4.6 mg/dL (2.5-4.9)
[2017-09-12 00:50] LABS: CREATININE 8.5 mg/dL (0.6-1.3); GFR ESTIMATE (CALCULATED) 8 mL/min/ (58.99-99999)
[2017-09-12 00:51] LABS: UREA NITROGEN (BUN) 35 mg/dL (9-23)
[2017-09-12 00:55] LABS: MAGNESIUM 0.8 mg/dL (1.3-2.7); POTASSIUM 3.1 mEq/L (3.7-5.4)
[2017-09-12 04:54] LABS: BASOPHIL (%) 0.1 % (0-1); EOSINOPHIL COUNT 0.2 K/uL (0-0.3); HEMATOCRIT 27.9 % (38.0-50.0); HEMOGLOBIN 9.9 G/DL (12.5-16.6); IMMATURE GRANULOCYTE (%) 0.8 % (0.0-0.7); LYMPHOCYTE (%) 8.6 % (15-42); LYMPHOCYTE COUNT 1.3 K/uL (1.0-2.8); MCHC 35.5 G/DL (30.0-36.0); MCV 84.5 FL (86-99); MONOCYTE (%) 8.7 % (3-12); MONOCYTE COUNT 1.3 K/uL (0-0.8); NEUTROPHIL (%) 80.8 % (45-76); NEUTROPHIL COUNT 12.5 K/uL (1.8-6.4); PLATELET COUNT 333 K/uL (156-360); RBC DIS.WIDTH-CV 14.5 % (11.8-14.6); RBC DIS.WIDTH-SD 44.3 % (39-53); WHITE BLOOD COUNT 15.5 K/uL (4.1-10.2)
[2017-09-12 05:03] LABS: CHLORIDE 93 mEq/L (99-109); SODIUM 127 mEq/L (136-147)
[2017-09-12 05:04] LABS: GLUCOSE 186 mg/dL (70-99)
[2017-09-12 05:06] LABS: ALBUMIN 2.1 g/dL (3.2-4.8); CHLORIDE 93 mEq/L (99-109); SODIUM 127 mEq/L (136-147)
[2017-09-12 05:08] LABS: CREATININE 8.3 mg/dL (0.6-1.3); GFR ESTIMATE (CALCULATED) 9 mL/min/ (58.99-99999); GLUCOSE 189 mg/dL (70-99); PHOSPHORUS 4.2 mg/dL (2.5-4.9)
[2017-09-12 05:09] LABS: MAGNESIUM 1.4 mg/dL (1.3-2.7); UREA NITROGEN (BUN) 34 mg/dL (9-23)
[2017-09-12 05:12] LABS: CREATININE 8.3 mg/dL (0.6-1.3); GFR ESTIMATE (CALCULATED) 9 mL/min/ (58.99-99999); PHOSPHORUS 4.3 mg/dL (2.5-4.9)
[2017-09-12 05:13] LABS: UREA NITROGEN (BUN) 36 mg/dL (9-23)
[2017-09-12 06:23] LABS: VANCOMYCIN, TROUGH 15.7 MCG/ML (10-20)
[2017-09-12 09:43] LABS: CHLORIDE 92 MEQ/L (99-109); CREATININE 7.9 MG/DL (0.6-1.3); GFR ESTIMATE (CALCULATED) 9 mL/min/ (58.99-99999); GLUCOSE 193 mg/dL (70-99); MAGNESIUM 1.8 mg/dl (1.3-2.7); PHOSPHORUS 4.2 mg/dL (2.5-4.9); POTASSIUM 3.2 MEQ/L (3.7-5.4); SODIUM 129 MEQ/L (136-147); UREA NITROGEN (BUN) 35 mg/dL (9-23)
[2017-09-12 12:14] LABS: CARBON DIOXIDE (BICARBONATE) 25.1 MEQ/L (20-31)
[2017-09-12 12:39] LABS: CHLORIDE 91 MEQ/L (99-109); GFR ESTIMATE (CALCULATED) 9 mL/min/ (58.99-99999); GLUCOSE 129 mg/dL (70-99); PHOSPHORUS 4.2 mg/dL (2.5-4.9); POTASSIUM 3.2 MEQ/L (3.7-5.4); SODIUM 128 MEQ/L (136-147); UREA NITROGEN (BUN) 36 mg/dL (9-23)
[2017-09-12 18:45] LABS: ALBUMIN 1.9 G/DL (3.2-4.8); ALKALINE PHOSPHATASE 66 IU/L (3-129); ALT (GPT) 4 IU/L (3-49); AST (GOT) < 7 IU/L (2-34); CHLORIDE 92 MEQ/L (99-109); CREATININE 7.8 MG/DL (0.6-1.3); GFR ESTIMATE (CALCULATED) 9 mL/min/ (58.99-99999); GLUCOSE 208 mg/dL (70-99); POTASSIUM 3.3 MEQ/L (3.7-5.4); SODIUM 127 MEQ/L (136-147); TOTAL BILIRUBIN 0.2 MG/DL (0.0-1.0); TOTAL PROTEIN 5.7 G/DL (6.4-8.3); UREA NITROGEN (BUN) 35 mg/dL (9-23)
[2017-09-12 19:15] LABS: MAGNESIUM 1.7 mg/dl (1.3-2.7); PHOSPHORUS 4.3 mg/dL (2.5-4.9)
[2017-09-13] VITALS (24 sets, daily range): BP systolic 76–130; BP diastolic 54–77
[2017-09-13 03:13] LABS: TYPE OF FLUID PD FLUID
[2017-09-13 05:29] LABS: APPEARANCE CLEAR/COLORLESS
[2017-09-13 05:30] LABS: BODY FLUID RBC'S 92 /MM^3 (0-100); BODY FLUID WBC'S 52 /MM^3 (0-500)
[2017-09-13 05:33] LABS: BODY FLUID EOSINOPHILS 5 % (0-25); MONONUCLEAR WBC'S 38 %; POLYNUCLEAR WBC'S 57 % (0-25)
[2017-09-13 06:20] LABS: CHLORIDE 92 MEQ/L (99-109); CREATININE 7.9 MG/DL (0.6-1.3); GFR ESTIMATE (CALCULATED) 9 mL/min/ (58.99-99999); PHOSPHORUS 4.3 mg/dL (2.5-4.9); POTASSIUM 3.5 MEQ/L (3.7-5.4); SODIUM 127 MEQ/L (136-147); UREA NITROGEN (BUN) 35 mg/dL (9-23)
[2017-09-13 06:21] LABS: GLUCOSE 109 mg/dL (70-99)
[2017-09-13 07:20] LABS: BASOPHIL (%) 0.2 % (0-1); EOSINOPHIL (%) 1.8 % (0-5); EOSINOPHIL COUNT 0.2 K/uL (0-0.3); HEMATOCRIT 27.8 % (38.0-50.0); HEMOGLOBIN 9.5 G/DL (12.5-16.6); IMMATURE GRANULOCYTE (%) 0.4 % (0.0-0.7); LYMPHOCYTE (%) 10.2 % (15-42); MCH 29.5 PG (29.0-34.0); MCHC 34.2 G/DL (30.0-36.0); MCV 86.3 FL (86-99); MONOCYTE (%) 11.1 % (3-12); NEUTROPHIL (%) 76.3 % (45-76); NEUTROPHIL COUNT 7.2 K/uL (1.8-6.4); PLATELET COUNT 359 K/uL (156-360); RBC DIS.WIDTH-CV 15.4 % (11.8-14.6); RBC DIS.WIDTH-SD 48.5 % (39-53); RED BLOOD COUNT 3.22 M/uL (4.00-5.50); WHITE BLOOD COUNT 9.4 K/uL (4.1-10.2)
[2017-09-14] VITALS (23 sets, daily range): BP systolic 91–159; BP diastolic 49–123
[2017-09-14 04:54] LABS: HEMATOCRIT 27.7 % (38.0-50.0); HEMOGLOBIN 9.5 G/DL (12.5-16.6); MCH 29.4 PG (29.0-34.0); MCHC 34.3 G/DL (30.0-36.0); MCV 85.8 FL (86-99); PLATELET COUNT 382 K/uL (156-360); RBC DIS.WIDTH-CV 15.2 % (11.8-14.6); RBC DIS.WIDTH-SD 47.7 % (39-53); RED BLOOD COUNT 3.23 M/uL (4.00-5.50); WHITE BLOOD COUNT 13.4 K/uL (4.1-10.2)
[2017-09-14 05:04] LABS: ALBUMIN 2.1 g/dL (3.2-4.8); CHLORIDE 95 mEq/L (99-109); POTASSIUM 4.3 mEq/L (3.7-5.4); SODIUM 129 mEq/L (136-147)
[2017-09-14 05:09] LABS: GLUCOSE 169 mg/dL (70-99); PHOSPHORUS 5.5 mg/dL (2.5-4.9)
[2017-09-14 05:10] LABS: GFR ESTIMATE (CALCULATED) 8 mL/min/ (58.99-99999)
[2017-09-14 05:11] LABS: UREA NITROGEN (BUN) 43 mg/dL (9-23)
[2017-09-14 08:43] LABS: VANCOMYCIN, TROUGH 26.3 MCG/ML (10-20)
[2017-09-14 11:52] LABS: HEPATITIS B SURFACE ANTIGEN Nonreactive
[2017-09-14 12:00] LABS: HEPATITIS B SURFACE ANTIBODY REACTIVE
[2017-09-15] VITALS: BP 147/84
[2017-09-15 04:00] VITALS: BP 100/53
[2017-09-15 04:54] LABS: CHLORIDE 97 mEq/L (99-109); SODIUM 132 mEq/L (136-147)
[2017-09-15 04:59] LABS: GFR ESTIMATE (CALCULATED) 11 mL/min/ (58.99-99999); PHOSPHORUS 3.9 mg/dL (2.5-4.9)
[2017-09-15 05:00] LABS: UREA NITROGEN (BUN) 29 mg/dL (9-23)
[2017-09-15 05:06] LABS: CREATININE 6.5 mg/dL (0.6-1.3); GLUCOSE 262 mg/dL (70-99)
[2017-09-15 05:56] LABS: VANCOMYCIN, TROUGH 22.5 MCG/ML (10-20)
[2017-09-15 08:00] VITALS: BP 177/91
[2017-09-15 12:00] VITALS: BP 188/99
[2017-09-15] MEDS ORDERED: VALSARTAN160 MG PO (13:32)
[2017-09-15] MEDS ORDERED: PERCOCET 5/31 TABLET PO (13:50)
[2017-09-15 14:00] VITALS: BP 136/86
== END 2017-09-15 15:16 | disposition home or self-care (01) | DRG 981 ==
LOC: EME 08:38 → EDOF 11:33 → 4WEST 11:33 → ENRESERV 11:34 → 4WEST 12:36
PROVIDERS: Emergency Medicine; Internal Medicine; Internal Medicine Critical Care Medicine; Obstetrics & Gynecology
DX: T85.71XA Infection and inflammatory reaction due to peritoneal dialysis catheter, initial encounter (principal); K65.9 Peritonitis, unspecified; Y83.8 Other surgical procedures as the cause of abnormal reaction of the patient, or of later complication, without mention of misadventure at the time of the procedure; B95.61 Methicillin susceptible Staphylococcus aureus infection as the cause of diseases classified elsewhere; B96.89 Other specified bacterial agents as the cause of diseases classified elsewhere; E11.00 Type 2 diabetes mellitus with hyperosmolarity without nonketotic hyperglycemic-hyperosmolar coma (NKHHC); E11.10 Type 2 diabetes mellitus with ketoacidosis without coma; I13.2 Hypertensive heart and chronic kidney disease with heart failure and with stage 5 chronic kidney disease, or end stage renal disease; I50.32 Chronic diastolic (congestive) heart failure; N18.6 End stage renal disease; E11.22 Type 2 diabetes mellitus with diabetic chronic kidney disease; Z99.2 Dependence on renal dialysis; E11.649 Type 2 diabetes mellitus with hypoglycemia without coma; E11.42 Type 2 diabetes mellitus with diabetic polyneuropathy; N25.81 Secondary hyperparathyroidism of renal origin; E83.39 Other disorders of phosphorus metabolism; I42.9 Cardiomyopathy, unspecified; E87.1 Hypo-osmolality and hyponatremia; E87.6 Hypokalemia; D50.9 Iron deficiency anemia, unspecified; D63.1 Anemia in chronic kidney disease; E78.5 Hyperlipidemia, unspecified; I25.10 Atherosclerotic heart disease of native coronary artery without angina pectoris; Z79.4 Long term (current) use of insulin; Z87.891 Personal history of nicotine dependence
CPT/HCPCS: 71045; 80048; 80048 91; 80053; 80069; 80202; 82803; 82945; 82948; 83036; 83605; 83615 91; 83735; 84100; 84157; 84999; 85025; 85027; 86706; 87040; 87070; 87075; 87077; 87147; 87186; 87205; 87340; 87641; 89051; 99281; 99285; C1788; J0610; J0713; J0881; J1270; J1644; J1815; J2250; J2405; J3010; J3370; J3475; J3480; J7030; J7040; J7042; J7050; S0020

== ENCOUNTER 2017-10-21 12:32 | Day surgery (SDC) | payer OTHER ==
[~2017-10-21] VITALS: Ht 185.4 cm; Wt 91.0 kg
[~2017-10-21 12:32] MED LIST changes: +CYMBALTA60 MG PO; +PERCOCET 5/31 TABLET PO; +SLOW-MAG,MAG DE64 MG PO; +VALSARTAN160 MG PO
[2017-10-21 13:00] LABS: HEMATOCRIT 22.8 % (38.0-50.0); MCH 28.6 PG (29.0-34.0); MCHC 30.7 G/DL (30.0-36.0); MCV 93.1 FL (86-99); PLATELET COUNT 286 K/uL (156-360); RBC DIS.WIDTH-CV 17.6 % (11.8-14.6); RBC DIS.WIDTH-SD 59.4 % (39-53); RED BLOOD COUNT 2.45 M/uL (4.00-5.50); WHITE BLOOD COUNT 6.9 K/uL (4.1-10.2)
[2017-10-21 13:02] VITALS: BP 142/76
[2017-10-21 13:17] LABS: CHLORIDE 97 MEQ/L (99-109); GFR ESTIMATE (CALCULATED) 13 mL/min/ (58.99-99999); GLUCOSE 217 mg/dL (70-99); POTASSIUM 3.8 MEQ/L (3.7-5.4); SODIUM 140 MEQ/L (136-147); UREA NITROGEN (BUN) 34 mg/dL (9-23)
[2017-10-21] MEDS ORDERED: NORCO 5/3251 TABLET PO (17:34)
[2017-10-22 06:15] VITALS: BP 125/78
[2017-10-22 06:32] LABS: MCH 28.2 PG (29.0-34.0); NRBC (%) 0.3 /100 WBC (0-0); PLATELET COUNT 255 K/uL (156-360); RBC DIS.WIDTH-CV 17.7 % (11.8-14.6); RBC DIS.WIDTH-SD 60.2 % (39-53); RED BLOOD COUNT 2.34 M/uL (4.00-5.50)
[2017-10-22 06:55] LABS: CHLORIDE 100 MEQ/L (99-109); CREATININE 6.7 MG/DL (0.6-1.3); GFR ESTIMATE (CALCULATED) 11 mL/min/ (58.99-99999); POTASSIUM 3.8 MEQ/L (3.7-5.4); SODIUM 143 MEQ/L (136-147); UREA NITROGEN (BUN) 39 mg/dL (9-23)
[2017-10-22 06:56] LABS: GLUCOSE 56 mg/dL (70-99)
[2017-10-22 07:07] LABS: HEMOGLOBIN 6.6 G/DL (12.5-16.6)
[2017-10-22 13:36] VITALS: BP 126/71
[2017-10-22 15:00] VITALS: BP 132/77
[2017-10-22 18:19] LABS: HEMATOCRIT 26.2 % (38.0-50.0); HEMOGLOBIN 8.4 G/DL (12.5-16.6); MCH 29.3 PG (29.0-34.0); MCHC 32.1 G/DL (30.0-36.0); MCV 91.3 FL (86-99); PLATELET COUNT 266 K/uL (156-360); RBC DIS.WIDTH-CV 17.2 % (11.8-14.6); RBC DIS.WIDTH-SD 57.1 % (39-53); WHITE BLOOD COUNT 6.5 K/uL (4.1-10.2)
[2017-10-22 18:21] LABS: RED BLOOD COUNT 2.87 M/uL (4.00-5.50)
[2017-10-22 19:00] VITALS: BP 142/73
[2017-10-22 22:20] VITALS: BP 161/86
== END 2017-10-22 23:30 | disposition home or self-care (01) ==
LOC: SDC 12:32 → 2EASTP 20:58 → 2SOUTH 20:58 → ENRESERV 21:04 → 2EASTP 10-22 06:14
PROVIDERS: Anesthesiology; Surgery
PROC: 3E03317 Introduction of Other Thrombolytic into Peripheral Vein, Percutaneous Approach (ICD-10-PCS; principal; 2017-10-21)
PROC: B51W1ZZ Fluoroscopy of Dialysis Shunt/Fistula using Low Osmolar Contrast (ICD-10-PCS; principal; 2017-10-21)
PROC: 031809D Bypass Left Brachial Artery to Upper Arm Vein with Autologous Venous Tissue, Open Approach (ICD-10-PCS; principal; 2017-10-21)
PROC: 05HY33Z Insertion of Infusion Device into Upper Vein, Percutaneous Approach (ICD-10-PCS; principal; 2017-10-21)
PROC: 3E03317 Introduction of Other Thrombolytic into Peripheral Vein, Percutaneous Approach (ICD-10-PCS; 2017-10-22)
PROC: 03WY07Z Revision of Autologous Tissue Substitute in Upper Artery, Open Approach (ICD-10-PCS; 2017-10-22)
DX: I12.0 Hypertensive chronic kidney disease with stage 5 chronic kidney disease or end stage renal disease (principal); E11.22 Type 2 diabetes mellitus with diabetic chronic kidney disease; N18.6 End stage renal disease; Z99.2 Dependence on renal dialysis; T82.510A Breakdown (mechanical) of surgically created arteriovenous fistula, initial encounter; N25.81 Secondary hyperparathyroidism of renal origin; D64.9 Anemia, unspecified; I42.9 Cardiomyopathy, unspecified; Z79.4 Long term (current) use of insulin; E66.3 Overweight; Z68.26 Body mass index [BMI] 26.0-26.9, adult; Y83.2 Surgical operation with anastomosis, bypass or graft as the cause of abnormal reaction of the patient, or of later complication, without mention of misadventure at the time of the procedure
CPT/HCPCS: 80048; 82948; 85027; 86850; 86900; 86901; 86920; 87641; 93005; C1757; G0257; G0378; J0360; J0690; J1170; J1644; J1815; J2250; J3010; J7040; P9016

== ENCOUNTER 2017-12-04 15:58 | Inpatient (IN) | payer OTHER ==
[~2017-12-04] VITALS: Ht 188 cm; Wt 87.9 kg
[~2017-12-04 15:58] MED LIST changes: +NORCO 5/3251 TABLET PO
[2017-12-04 16:51] LABS: HEMATOCRIT 32.3 % (38.0-50.0); HEMOGLOBIN 10.8 G/DL (12.5-16.6); MCH 30.2 PG (29.0-34.0); MCHC 33.4 G/DL (30.0-36.0); MCV 90.2 FL (86-99); PLATELET COUNT 297 K/uL (156-360); RBC DIS.WIDTH-CV 16.7 % (11.8-14.6); RBC DIS.WIDTH-SD 54.5 % (39-53); RED BLOOD COUNT 3.58 M/uL (4.00-5.50); WHITE BLOOD COUNT 7.2 K/uL (4.1-10.2)
[2017-12-04 16:55] LABS: CARBON DIOXIDE (BICARBONATE) 27.4 MEQ/L (20-31)
[2017-12-04 17:08] LABS: CHLORIDE 87 mEq/L (99-109); SODIUM 133 mEq/L (136-147)
[2017-12-04 17:09] LABS: MAGNESIUM 2.1 mg/dL (1.3-2.7)
[2017-12-04 17:11] LABS: TOTAL PROTEIN 8.2 g/dL (6.4-8.3)
[2017-12-04 17:13] LABS: TOTAL BILIRUBIN 0.7 mg/dL (0.0-1.0)
[2017-12-04 17:14] LABS: ALKALINE PHOSPHATASE 284 IU/L (3-129); GLUCOSE 697 mg/dL (70-99); PHOSPHORUS 4.4 mg/dL (2.5-4.9)
[2017-12-04 17:15] LABS: CREATININE 7.3 mg/dL (0.6-1.3); GFR ESTIMATE (CALCULATED) 10 mL/min/ (58.99-99999)
[2017-12-04 17:16] LABS: AST (GOT) 12 IU/L (2-34); UREA NITROGEN (BUN) 50 mg/dL (9-23)
[2017-12-04 17:17] LABS: ALT (GPT) 7 IU/L (3-49)
[2017-12-04 17:18] LABS: LIPASE 64 U/L (1.0-51.0)
[2017-12-04 17:25] LABS: TROP-I INTERPRETATION NEGATIVE; TROPONIN-I 0.06 ng/mL (0.0-0.30)
[2017-12-04 18:38] LABS: THYROTROPIN (TSH) 1.2 MIU/L (0.4-5.5)
[2017-12-04] MEDS ORDERED: DIOVAN160 MG PO (19:12)
[2017-12-04] MEDS ORDERED: NEURONTIN100 MG PO ×2 (19:13→19:14)
[2017-12-04] MEDS ORDERED: NEPHRO-VITE,1 TABLET PO (19:15)
[2017-12-04] MEDS ORDERED: SENSIPAR30 MG PO (19:16)
[2017-12-04] MEDS ORDERED: ZOFRAN4 MG PO (19:16)
[2017-12-04] MEDS ORDERED: TYLENOL EXTRA500 MG PO (19:18)
[2017-12-04 20:20] LABS: CHLORIDE 93 mEq/L (99-109); POTASSIUM 4.4 mEq/L (3.7-5.4); SODIUM 135 mEq/L (136-147)
[2017-12-04 20:26] LABS: CREATININE 7.3 mg/dL (0.6-1.3); GFR ESTIMATE (CALCULATED) 10 mL/min/ (58.99-99999); GLUCOSE 472 mg/dL (70-99); PHOSPHORUS 4.2 mg/dL (2.5-4.9)
[2017-12-04 20:27] LABS: UREA NITROGEN (BUN) 51 mg/dL (9-23)
[2017-12-04 20:30] VITALS: BP 167/82
[2017-12-04 20:34] VITALS: BP 167/92
[2017-12-04 21:01] VITALS: BP 159/89
[2017-12-04 22:00] VITALS: BP 137/81
[2017-12-04 23:00] VITALS: BP 137/77
[2017-12-05] VITALS (17 sets, daily range): BP systolic 118–423; BP diastolic 59–92
[2017-12-05 00:40] LABS: CHLORIDE 96 mEq/L (99-109); POTASSIUM 4.3 mEq/L (3.7-5.4); SODIUM 139 mEq/L (136-147)
[2017-12-05 00:45] LABS: GLUCOSE 212 mg/dL (70-99); PHOSPHORUS 3.9 mg/dL (2.5-4.9)
[2017-12-05 00:46] LABS: CREATININE 7.4 mg/dL (0.6-1.3); GFR ESTIMATE (CALCULATED) 10 mL/min/ (58.99-99999)
[2017-12-05 00:47] LABS: UREA NITROGEN (BUN) 53 mg/dL (9-23)
[2017-12-05 05:26] LABS: BASOPHIL (%) 0.9 % (0-1); BASOPHIL COUNT 0.1 K/uL (0-0.1); EOSINOPHIL COUNT 0.1 K/uL (0-0.3); HEMATOCRIT 30.2 % (38.0-50.0); IMMATURE GRANULOCYTE (%) 0.3 % (0.0-0.7); LYMPHOCYTE (%) 17.9 % (15-42); LYMPHOCYTE COUNT 1.2 K/uL (1.0-2.8); MCH 29.5 PG (29.0-34.0); MCHC 33.1 G/DL (30.0-36.0); MCV 89.1 FL (86-99); MONOCYTE (%) 13.6 % (3-12); MONOCYTE COUNT 0.9 K/uL (0-0.8); NEUTROPHIL (%) 65.3 % (45-76); NEUTROPHIL COUNT 4.3 K/uL (1.8-6.4); NRBC (%) 0.5 /100 WBC (0-0); RBC DIS.WIDTH-CV 17.3 % (11.8-14.6); RBC DIS.WIDTH-SD 55.8 % (39-53); RED BLOOD COUNT 3.39 M/uL (4.00-5.50); WHITE BLOOD COUNT 6.6 K/uL (4.1-10.2)
[2017-12-05 05:36] LABS: CHLORIDE 97 MEQ/L (99-109); CREATININE 7.1 MG/DL (0.6-1.3); GFR ESTIMATE (CALCULATED) 10 mL/min/ (58.99-99999); PHOSPHORUS 4.4 mg/dL (2.5-4.9); POTASSIUM 4.6 MEQ/L (3.7-5.4); SODIUM 138 MEQ/L (136-147); UREA NITROGEN (BUN) 55 mg/dL (9-23)
[2017-12-05 05:39] LABS: GLUCOSE 101 mg/dL (70-99)
[2017-12-05 07:58] LABS: PLAT.SUFFICIENCY ADEQUATE; PLATELET COUNT 266 K/uL (156-360)
[2017-12-05 09:24] LABS: CHLORIDE 96 MEQ/L (99-109); CREATININE 7.1 MG/DL (0.6-1.3); GFR ESTIMATE (CALCULATED) 10 mL/min/ (58.99-99999); PHOSPHORUS 4.3 mg/dL (2.5-4.9); POTASSIUM 4.2 MEQ/L (3.7-5.4); SODIUM 137 MEQ/L (136-147); UREA NITROGEN (BUN) 57 mg/dL (9-23)
[2017-12-05 09:26] LABS: GLUCOSE 162 mg/dL (70-99)
[2017-12-05 10:43] LABS: HEMOGLOBIN A1c (GLYCOHEMOGLOB) 11.5 % (Below 5.7)
[2017-12-05 12:00] LABS: CHLORIDE 98 MEQ/L (99-109); GFR ESTIMATE (CALCULATED) 11 mL/min/ (58.99-99999); GLUCOSE 200 mg/dL (70-99); PHOSPHORUS 4.3 mg/dL (2.5-4.9); POTASSIUM 4.5 MEQ/L (3.7-5.4); SODIUM 133 MEQ/L (136-147); UREA NITROGEN (BUN) 55 mg/dL (9-23)
[2017-12-05 20:45] LABS: CHLORIDE 98 MEQ/L (99-109); MAGNESIUM 1.9 mg/dl (1.3-2.7); POTASSIUM 5.2 MEQ/L (3.7-5.4); SODIUM 133 MEQ/L (136-147)
[2017-12-05 20:51] LABS: GLUCOSE 151 mg/dL (70-99)
[2017-12-05 20:52] LABS: CREATININE 4.2 MG/DL (0.6-1.3); GFR ESTIMATE (CALCULATED) 19 mL/min/ (58.99-99999); PHOSPHORUS 2.7 mg/dL (2.5-4.9); UREA NITROGEN (BUN) 25 mg/dL (9-23)
[2017-12-06 03:01] LABS: CHLORIDE 97 mEq/L (99-109); POTASSIUM 4.1 mEq/L (3.7-5.4); SODIUM 136 mEq/L (136-147)
[2017-12-06 03:05] LABS: GLUCOSE 69 mg/dL (70-99)
[2017-12-06 03:07] LABS: CREATININE 4.9 mg/dL (0.6-1.3); GFR ESTIMATE (CALCULATED) 16 mL/min/ (58.99-99999); UREA NITROGEN (BUN) 31 mg/dL (9-23)
[2017-12-06 03:50] VITALS: BP 146/80
[2017-12-06 06:37] LABS: BASOPHIL (%) 1.2 % (0-1); BASOPHIL COUNT 0.1 K/uL (0-0.1); EOSINOPHIL (%) 4.4 % (0-5); EOSINOPHIL COUNT 0.3 K/uL (0-0.3); HEMATOCRIT 33.1 % (38.0-50.0); HEMOGLOBIN 10.6 G/DL (12.5-16.6); IMMATURE GRANULOCYTE (%) 0.4 % (0.0-0.7); LYMPHOCYTE (%) 24.3 % (15-42); LYMPHOCYTE COUNT 1.4 K/uL (1.0-2.8); MCH 29.1 PG (29.0-34.0); MCV 90.9 FL (86-99); MONOCYTE (%) 16.6 % (3-12); NEUTROPHIL (%) 53.1 % (45-76); PLATELET COUNT 308 K/uL (156-360); RBC DIS.WIDTH-CV 17.7 % (11.8-14.6); RBC DIS.WIDTH-SD 59.1 % (39-53); RED BLOOD COUNT 3.64 M/uL (4.00-5.50); WHITE BLOOD COUNT 5.7 K/uL (4.1-10.2)
[2017-12-06 07:05] LABS: CHLORIDE 99 MEQ/L (99-109); CREATININE 5.1 MG/DL (0.6-1.3); GFR ESTIMATE (CALCULATED) 15 mL/min/ (58.99-99999); POTASSIUM 4.4 MEQ/L (3.7-5.4); SODIUM 136 MEQ/L (136-147); UREA NITROGEN (BUN) 36 mg/dL (9-23)
[2017-12-06 07:11] LABS: GLUCOSE 103 mg/dL (70-99)
[2017-12-06 08:13] VITALS: BP 147/80
[2017-12-06 10:52] LABS: CHLORIDE 97 MEQ/L (99-109); CREATININE 5.3 MG/DL (0.6-1.3); GFR ESTIMATE (CALCULATED) 15 mL/min/ (58.99-99999); GLUCOSE 135 mg/dL (70-99); POTASSIUM 4.3 MEQ/L (3.7-5.4); SODIUM 134 MEQ/L (136-147); UREA NITROGEN (BUN) 37 mg/dL (9-23)
[2017-12-06 13:55] LABS: CHLORIDE 99 MEQ/L (99-109); CREATININE 5.4 MG/DL (0.6-1.3); GFR ESTIMATE (CALCULATED) 14 mL/min/ (58.99-99999); POTASSIUM 4.3 MEQ/L (3.7-5.4); SODIUM 137 MEQ/L (136-147); UREA NITROGEN (BUN) 38 mg/dL (9-23)
[2017-12-06 14:05] LABS: GLUCOSE 80 mg/dL (70-99)
[2017-12-06 16:08] VITALS: BP 120/80
[2017-12-06 23:09] VITALS: BP 130/65
[2017-12-07 06:26] LABS: BASOPHIL (%) 1.1 % (0-1); BASOPHIL COUNT 0.1 K/uL (0-0.1); EOSINOPHIL COUNT 0.3 K/uL (0-0.3); HEMATOCRIT 32.5 % (38.0-50.0); HEMOGLOBIN 10.3 G/DL (12.5-16.6); IMMATURE GRANULOCYTE (%) 0.4 % (0.0-0.7); LYMPHOCYTE (%) 25.9 % (15-42); LYMPHOCYTE COUNT 1.4 K/uL (1.0-2.8); MCH 29.3 PG (29.0-34.0); MCHC 31.7 G/DL (30.0-36.0); MCV 92.3 FL (86-99); MONOCYTE (%) 19.2 % (3-12); NEUTROPHIL (%) 48.4 % (45-76); NEUTROPHIL COUNT 2.5 K/uL (1.8-6.4); PLATELET COUNT 295 K/uL (156-360); RBC DIS.WIDTH-SD 60.1 % (39-53); RED BLOOD COUNT 3.52 M/uL (4.00-5.50); WHITE BLOOD COUNT 5.2 K/uL (4.1-10.2)
[2017-12-07 06:50] LABS: CHLORIDE 98 MEQ/L (99-109); CREATININE 6.1 MG/DL (0.6-1.3); CREATININE 6.3 MG/DL (0.6-1.3); GFR ESTIMATE (CALCULATED) 12 mL/min/ (58.99-99999); POTASSIUM 4.7 MEQ/L (3.7-5.4); POTASSIUM 4.9 MEQ/L (3.7-5.4); SODIUM 137 MEQ/L (136-147); UREA NITROGEN (BUN) 44 mg/dL (9-23); UREA NITROGEN (BUN) 45 mg/dL (9-23)
[2017-12-07 06:51] LABS: GLUCOSE 107 mg/dL (70-99); GLUCOSE 109 mg/dL (70-99); PHOSPHORUS 4.2 mg/dL (2.5-4.9)
[2017-12-07 08:33] LABS: BASOPHIL (%) 1.1 % (0-1); BASOPHIL COUNT 0.1 K/uL (0-0.1); EOSINOPHIL (%) 5.9 % (0-5); EOSINOPHIL COUNT 0.3 K/uL (0-0.3); HEMOGLOBIN 10.2 G/DL (12.5-16.6); IMMATURE GRANULOCYTE (%) 0.2 % (0.0-0.7); LYMPHOCYTE COUNT 1.2 K/uL (1.0-2.8); MCH 30.4 PG (29.0-34.0); MCHC 32.9 G/DL (30.0-36.0); MCV 92.5 FL (86-99); MONOCYTE (%) 19.2 % (3-12); NEUTROPHIL (%) 50.6 % (45-76); NEUTROPHIL COUNT 2.7 K/uL (1.8-6.4); PLATELET COUNT 277 K/uL (156-360); RBC DIS.WIDTH-CV 17.9 % (11.8-14.6); RBC DIS.WIDTH-SD 60.7 % (39-53); RED BLOOD COUNT 3.35 M/uL (4.00-5.50); WHITE BLOOD COUNT 5.3 K/uL (4.1-10.2)
[2017-12-07 08:55] LABS: ALBUMIN 2.9 G/DL (3.2-4.8); CHLORIDE 98 MEQ/L (99-109); POTASSIUM 4.9 MEQ/L (3.7-5.4); SODIUM 135 MEQ/L (136-147)
[2017-12-07 09:08] LABS: CREATININE 6.1 MG/DL (0.6-1.3); GFR ESTIMATE (CALCULATED) 12 mL/min/ (58.99-99999); GLUCOSE 130 mg/dL (70-99); PHOSPHORUS 3.9 mg/dL (2.5-4.9); UREA NITROGEN (BUN) 45 mg/dL (9-23)
== END 2017-12-07 14:11 | disposition home or self-care (01) | DRG 637 ==
LOC: EME 15:58 → 3EAST 18:42 → 4WEST 18:42 → EDOF 18:42 → ENRESERV 18:43 → 4WEST 20:21 → ENRESERV 12-05 16:43 → 3EAST 12-05 21:05
PROVIDERS: Emergency Medicine; Hospitalist; Internal Medicine Nephrology; Specialist; Student in an Organized Health Care Education/Training Program
PROC: 5A1D70Z Performance of Urinary Filtration, Intermittent, Less than 6 Hours Per Day (ICD-10-PCS; principal; 2017-12-05)
DX: E11.01 Type 2 diabetes mellitus with hyperosmolarity with coma (principal); G93.41 Metabolic encephalopathy; E11.649 Type 2 diabetes mellitus with hypoglycemia without coma; E87.1 Hypo-osmolality and hyponatremia; I13.2 Hypertensive heart and chronic kidney disease with heart failure and with stage 5 chronic kidney disease, or end stage renal disease; I50.9 Heart failure, unspecified; E11.22 Type 2 diabetes mellitus with diabetic chronic kidney disease; N18.6 End stage renal disease; N25.81 Secondary hyperparathyroidism of renal origin; E11.42 Type 2 diabetes mellitus with diabetic polyneuropathy; D63.1 Anemia in chronic kidney disease; E78.5 Hyperlipidemia, unspecified; D50.9 Iron deficiency anemia, unspecified; E55.9 Vitamin D deficiency, unspecified; Z79.4 Long term (current) use of insulin; Z87.891 Personal history of nicotine dependence; Z99.2 Dependence on renal dialysis; Z91.14 Patient's other noncompliance with medication regimen
CPT/HCPCS: 36600; 70450; 71045; 80047; 80048; 80048 91; 80053; 80069; 82010; 82140; 82803; 82948; 83036; 83605; 83690; 83735; 83880; 83930; 84100; 84443; 84484; 85025; 85025 91; 85027; 85379; 87040; 87641; 93005; 99281; 99285; J0881; J1270; J1644; J1815; J7030; J7050; S0028

== ENCOUNTER 2018-01-14 07:46 | Inpatient (IN) | payer OTHER ==
[~2018-01-14] VITALS: Ht 188 cm; Wt 100.1 kg
[~2018-01-14 07:46] MED LIST changes: +TYLENOL EXTRA500 MG PO; +ZOFRAN4 MG PO
[2018-01-14 08:10] LABS: CARBOXY HGB 2.2 % (0-5); METHEMOGLOBIN 0.5 % (0-1.5); O2 SATURATION (CALCULATED) 89.9 % (95-99); PCO2 48 mm Hg (35-45); PO2 60 mm Hg (80-100); pH 7.37 (7.35-7.45)
[2018-01-14 08:11] LABS: BASE EXCESS 1.9 mEq/L (-3 to +3); BICARBONATE 27.7 mEq/L (22-26); COMMENTS - BLOOD GASES A+C+; DEVICE NRBM; O2 FLOW 15 L/MIN; SITE RR; TOTAL RESP RATE 10 resp/min
[2018-01-14 08:26] LABS: BASOPHIL (%) 0.5 % (0-1); BASOPHIL COUNT 0.1 K/uL (0-0.1); EOSINOPHIL (%) 0.4 % (0-5); HEMATOCRIT 32.1 % (38.0-50.0); HEMOGLOBIN 10.9 G/DL (12.5-16.6); IMMATURE GRANULOCYTE (%) 0.4 % (0.0-0.7); LYMPHOCYTE (%) 8.4 % (15-42); LYMPHOCYTE COUNT 0.8 K/uL (1.0-2.8); MCH 30.4 PG (29.0-34.0); MCV 89.4 FL (86-99); MONOCYTE COUNT 0.7 K/uL (0-0.8); NEUTROPHIL (%) 83.3 % (45-76); NEUTROPHIL COUNT 7.9 K/uL (1.8-6.4); PLATELET COUNT 239 K/uL (156-360); RBC DIS.WIDTH-CV 16.1 % (11.8-14.6); RBC DIS.WIDTH-SD 52.4 % (39-53); RED BLOOD COUNT 3.59 M/uL (4.00-5.50); WHITE BLOOD COUNT 9.5 K/uL (4.1-10.2)
[2018-01-14 08:31] LABS: INTER. NORMALIZED RATIO 1.2
[2018-01-14 08:35] LABS: CHLORIDE 93 mEq/L (99-109); SODIUM 134 mEq/L (136-147)
[2018-01-14 08:37] LABS: GLUCOSE 176 mg/dL (70-99)
[2018-01-14 08:40] LABS: CREATININE 8.2 mg/dL (0.6-1.3); GFR ESTIMATE (CALCULATED) 9 mL/min/ (58.99-99999)
[2018-01-14 08:41] LABS: UREA NITROGEN (BUN) 83 mg/dL (9-23)
[2018-01-14 08:46] LABS: TROP-I INTERPRETATION NEGATIVE; TROPONIN-I 0.09 ng/mL (0.0-0.30)
[2018-01-14 08:47] LABS: POTASSIUM 6.6 mEq/L (3.7-5.4)
[2018-01-14] MEDS ORDERED: DIOVAN160 MG PO (10:28)
[2018-01-14] MEDS ORDERED: NORMODYNE,TRAN200 MG PO (10:29)
[2018-01-14] MEDS ORDERED: LONITEN2.5 MG PO (10:29)
[2018-01-14 11:48] LABS: POTASSIUM 6.8 mEq/L (3.7-5.4)
[2018-01-14 20:28] VITALS: BP 184/97
[2018-01-14 20:54] LABS: TROP-I INTERPRETATION POSITIVE; TROPONIN-I 0.89 ng/mL (0.0-0.30)
[2018-01-14 21:44] VITALS: BP 169/89
[2018-01-15] VITALS (7 sets, daily range): BP systolic 105–165; BP diastolic 57–91
[2018-01-15 01:15] LABS: TROP-I INTERPRETATION POSITIVE
[2018-01-15 01:22] LABS: TROPONIN-I 2.03 ng/mL (0.0-0.30)
[2018-01-15 03:21] LABS: HEMATOCRIT 29.6 % (38.0-50.0); HEMOGLOBIN 9.9 G/DL (12.5-16.6); MCH 30.1 PG (29.0-34.0); MCHC 33.4 G/DL (30.0-36.0); PLATELET COUNT 218 K/uL (156-360); RBC DIS.WIDTH-CV 16.6 % (11.8-14.6); RED BLOOD COUNT 3.29 M/uL (4.00-5.50); WHITE BLOOD COUNT 6.9 K/uL (4.1-10.2)
[2018-01-15 03:31] LABS: CHLORIDE 93 mEq/L (99-109); POTASSIUM 5.4 mEq/L (3.7-5.4); SODIUM 133 mEq/L (136-147)
[2018-01-15 03:36] LABS: GFR ESTIMATE (CALCULATED) 12 mL/min/ (58.99-99999)
[2018-01-15 03:37] LABS: UREA NITROGEN (BUN) 52 mg/dL (9-23)
[2018-01-15 03:39] LABS: CREATININE 6.1 mg/dL (0.6-1.3); GLUCOSE 391 mg/dL (70-99)
[2018-01-15 16:56] LABS: TYPE OF FLUID THORACENTESIS
[2018-01-15 17:16] LABS: APPEARANCE SL. HAZY-YELLOW; BODY FLUID RBC'S 2000 /MM^3 (0-100); BODY FLUID WBC'S 263 /MM^3 (0-500)
[2018-01-15 17:29] LABS: BODY FLUID LDH 96 IU/L; BODY FLUID PROTEIN 4.6 G/DL
[2018-01-15 17:51] LABS: BODY FLUID EOSINOPHILS 0 % (0-25); MONONUCLEAR WBC'S 81 %; POLYNUCLEAR WBC'S 19 % (0-25)
[2018-01-16 00:45] VITALS: BP 110/67
[2018-01-16 03:30] VITALS: BP 170/79
[2018-01-16 05:35] LABS: BASOPHIL (%) 0.9 % (0-1); BASOPHIL COUNT 0.1 K/uL (0-0.1); EOSINOPHIL (%) 6.1 % (0-5); EOSINOPHIL COUNT 0.5 K/uL (0-0.3); HEMOGLOBIN 9.8 G/DL (12.5-16.6); IMMATURE GRANULOCYTE (%) 0.3 % (0.0-0.7); LYMPHOCYTE (%) 20.8 % (15-42); LYMPHOCYTE COUNT 1.6 K/uL (1.0-2.8); MCH 29.5 PG (29.0-34.0); MCHC 32.7 G/DL (30.0-36.0); MCV 90.4 FL (86-99); MONOCYTE (%) 11.8 % (3-12); MONOCYTE COUNT 0.9 K/uL (0-0.8); NEUTROPHIL (%) 60.1 % (45-76); NEUTROPHIL COUNT 4.7 K/uL (1.8-6.4); PLATELET COUNT 233 K/uL (156-360); RBC DIS.WIDTH-CV 16.6 % (11.8-14.6); RBC DIS.WIDTH-SD 54.8 % (39-53); RED BLOOD COUNT 3.32 M/uL (4.00-5.50); WHITE BLOOD COUNT 7.7 K/uL (4.1-10.2)
[2018-01-16 06:01] LABS: CHLORIDE 96 MEQ/L (99-109); GFR ESTIMATE (CALCULATED) 10 mL/min/ (58.99-99999); POTASSIUM 4.7 MEQ/L (3.7-5.4); SODIUM 136 MEQ/L (136-147); UREA NITROGEN (BUN) 64 mg/dL (9-23)
[2018-01-16 06:38] LABS: CREATININE 7.2 MG/DL (0.6-1.3); GLUCOSE 64 mg/dL (70-99)
[2018-01-16] MEDS ORDERED: LEVEMIR100 UNIT/2 SC (10:22)
[2018-01-16 10:32] LABS: TROP-I INTERPRETATION POSITIVE
[2018-01-16 10:33] LABS: TROPONIN-I 2.98 ng/mL (0.0-0.30)
[2018-01-16 16:26] VITALS: BP 169/82
[2018-01-16 18:51] LABS: TOTAL PROTEIN 7.1 G/DL (6.4-8.3)
[2018-01-16 19:30] VITALS: BP 113/61
[2018-01-16 23:30] VITALS: BP 136/90
[2018-01-17 03:30] VITALS: BP 135/77
[2018-01-17 06:34] LABS: BASOPHIL COUNT 0.1 K/uL (0-0.1); EOSINOPHIL (%) 8.1 % (0-5); EOSINOPHIL COUNT 0.5 K/uL (0-0.3); HEMATOCRIT 30.5 % (38.0-50.0); HEMOGLOBIN 9.9 G/DL (12.5-16.6); IMMATURE GRANULOCYTE (%) 0.2 % (0.0-0.7); LYMPHOCYTE (%) 22.3 % (15-42); LYMPHOCYTE COUNT 1.4 K/uL (1.0-2.8); MCH 29.9 PG (29.0-34.0); MCHC 32.5 G/DL (30.0-36.0); MCV 92.1 FL (86-99); MONOCYTE (%) 12.1 % (3-12); MONOCYTE COUNT 0.8 K/uL (0-0.8); NEUTROPHIL (%) 56.3 % (45-76); NEUTROPHIL COUNT 3.6 K/uL (1.8-6.4); PLATELET COUNT 212 K/uL (156-360); RBC DIS.WIDTH-CV 16.6 % (11.8-14.6); RBC DIS.WIDTH-SD 56.7 % (39-53); RED BLOOD COUNT 3.31 M/uL (4.00-5.50); WHITE BLOOD COUNT 6.3 K/uL (4.1-10.2)
[2018-01-17 06:57] LABS: TROP-I INTERPRETATION POSITIVE
[2018-01-17 07:00] LABS: CHLORIDE 96 MEQ/L (99-109); GFR ESTIMATE (CALCULATED) 14 mL/min/ (58.99-99999); GLUCOSE 71 mg/dL (70-99); POTASSIUM 4.7 MEQ/L (3.7-5.4); SODIUM 135 MEQ/L (136-147); UREA NITROGEN (BUN) 38 mg/dL (9-23)
[2018-01-17 07:01] LABS: CREATININE 5.4 MG/DL (0.6-1.3)
[2018-01-17 07:28] VITALS: BP 114/63
[2018-01-17 11:03] VITALS: BP 158/84
[2018-01-17 14:35] LABS: TROP-I INTERPRETATION POSITIVE
[2018-01-17 15:10] VITALS: BP 167/91
[2018-01-17 20:10] VITALS: BP 122/69
[2018-01-17 23:45] VITALS: BP 139/78
[2018-01-18 04:30] VITALS: BP 134/76
[2018-01-18 06:39] VITALS: BP 137/89
[2018-01-18 06:45] LABS: INTER. NORMALIZED RATIO 1.1
[2018-01-18 06:48] LABS: PTT 68.6 SEC (25-37)
[2018-01-18 11:21] VITALS: BP 132/87
[2018-01-18 13:25] LABS: BASOPHIL COUNT 0.1 K/uL (0-0.1); EOSINOPHIL (%) 8.4 % (0-5); EOSINOPHIL COUNT 0.5 K/uL (0-0.3); HEMATOCRIT 29.6 % (38.0-50.0); HEMOGLOBIN 9.5 G/DL (12.5-16.6); IMMATURE GRANULOCYTE (%) 0.3 % (0.0-0.7); LYMPHOCYTE (%) 20.9 % (15-42); LYMPHOCYTE COUNT 1.3 K/uL (1.0-2.8); MCH 29.5 PG (29.0-34.0); MCHC 32.1 G/DL (30.0-36.0); MCV 91.9 FL (86-99); MONOCYTE (%) 10.9 % (3-12); MONOCYTE COUNT 0.7 K/uL (0-0.8); NEUTROPHIL (%) 58.5 % (45-76); NEUTROPHIL COUNT 3.7 K/uL (1.8-6.4); PLATELET COUNT 212 K/uL (156-360); RBC DIS.WIDTH-CV 16.9 % (11.8-14.6); RED BLOOD COUNT 3.22 M/uL (4.00-5.50); WHITE BLOOD COUNT 6.3 K/uL (4.1-10.2)
[2018-01-18 13:43] LABS: ALBUMIN 3.4 G/DL (3.2-4.8); CHLORIDE 93 MEQ/L (99-109); PHOSPHORUS 5.7 mg/dL (2.5-4.9); SODIUM 131 MEQ/L (136-147); UREA NITROGEN (BUN) 51 mg/dL (9-23)
[2018-01-18 13:44] LABS: CREATININE 6.4 MG/DL (0.6-1.3); GFR ESTIMATE (CALCULATED) 12 mL/min/ (58.99-99999); GLUCOSE 121 mg/dL (70-99); POTASSIUM 5.8 MEQ/L (3.7-5.4)
[2018-01-18 18:45] VITALS: BP 166/84
[2018-01-19 00:10] VITALS: BP 164/82
[2018-01-19 05:44] VITALS: BP 167/87
[2018-01-19 07:26] VITALS: BP 168/85
[2018-01-19] MEDS ORDERED: NORMODYNE,TRAN200 MG PO (11:26)
[2018-01-19] MEDS ORDERED: ASPIR-LOW81 MG PO (11:26)
[2018-01-19] MEDS ORDERED: LEVEMIR100 UNIT/2 SC (11:27)
[2018-01-19] MEDS ORDERED: NOVOLOG 10100 UNITS/ SC (11:27)
[2018-01-19] MEDS ORDERED: LANTUS 10100 UNITS/ SC (12:24)
[2018-01-19] MEDS ORDERED: HUMALOG100 UNIT/1 SC (14:44)
== END 2018-01-19 15:26 | disposition home health service (06) | DRG 280 ==
LOC: EME → EDBD 07:46 → EME 07:46 → EDOF 19:06 → 4EAST 19:06 → ENRESERV 19:07 → 4EAST 19:35 → ENRESERVDT 01-16 11:10 → ENRESERV 01-16 11:10 → CANRESERV 01-16 11:10 → ENPENDDIS 01-19 → 4EAST 01-19 15:26
PROVIDERS: Emergency Medicine; Hospitalist; Internal Medicine; Internal Medicine Cardiovascular Disease; Internal Medicine Nephrology; Internal Medicine Pulmonary Disease
PROC: 5A1D70Z Performance of Urinary Filtration, Intermittent, Less than 6 Hours Per Day (ICD-10-PCS; principal; 2018-01-14)
PROC: 4A10X4Z Monitoring of Central Nervous Electrical Activity, External Approach (ICD-10-PCS; 2018-01-15)
PROC: 0W993ZZ Drainage of Right Pleural Cavity, Percutaneous Approach (ICD-10-PCS; 2018-01-15)
DX: I21.4 Non-ST elevation (NSTEMI) myocardial infarction (principal); J96.01 Acute respiratory failure with hypoxia; N18.6 End stage renal disease; E11.649 Type 2 diabetes mellitus with hypoglycemia without coma; I50.33 Acute on chronic diastolic (congestive) heart failure; G93.41 Metabolic encephalopathy; N25.81 Secondary hyperparathyroidism of renal origin; I13.2 Hypertensive heart and chronic kidney disease with heart failure and with stage 5 chronic kidney disease, or end stage renal disease; I27.20 Pulmonary hypertension, unspecified; R56.9 Unspecified convulsions; E11.65 Type 2 diabetes mellitus with hyperglycemia; D63.1 Anemia in chronic kidney disease; E11.22 Type 2 diabetes mellitus with diabetic chronic kidney disease; E11.42 Type 2 diabetes mellitus with diabetic polyneuropathy; E11.21 Type 2 diabetes mellitus with diabetic nephropathy; I47.2 Ventricular tachycardia; E87.5 Hyperkalemia; E78.5 Hyperlipidemia, unspecified; E55.9 Vitamin D deficiency, unspecified; I42.9 Cardiomyopathy, unspecified; I87.2 Venous insufficiency (chronic) (peripheral); I07.1 Rheumatic tricuspid insufficiency; E03.9 Hypothyroidism, unspecified; I25.10 Atherosclerotic heart disease of native coronary artery without angina pectoris; S01.512A Laceration without foreign body of oral cavity, initial encounter; Z79.4 Long term (current) use of insulin; Z99.2 Dependence on renal dialysis; Z91.15 Patient's noncompliance with renal dialysis; Z87.891 Personal history of nicotine dependence; Y93.89 Activity, other specified; Z83.3 Family history of diabetes mellitus; Y92.092 Bedroom in other non-institutional residence as the place of occurrence of the external cause; Z82.49 Family history of ischemic heart disease and other diseases of the circulatory system
CPT/HCPCS: 36600; 70450; 71045; 71046; 71250; 71275; 76942; 80047; 80048; 80069; 81003; 82803; 82948; 83605; 83615; 83615 91; 84155; 84157; 84484; 84999; 85025; 85027; 85610; 85730; 87040; 87070; 87075; 87205; 88108; 88305; 89051; 93005; 93306; 93970; 94640; 94799; 95819; 99281; 99285; J0360; J1815; J7060

== ENCOUNTER → 2018-02-12 | Outpatient (CLI) | payer OTHER ==
[~2018-02-12] MED LIST changes: +ASPIR-LOW81 MG PO; +HUMALOG100 UNIT/1 SC; +LANTUS 10100 UNITS/ SC; +LEVEMIR100 UNIT/2 SC; +NOVOLOG 10100 UNITS/ SC
== END | disposition home or self-care (01) ==
LOC: AMB 08:30
PROC: 02PYX3Z Removal of Infusion Device from Great Vessel, External Approach (ICD-10-PCS; principal; 2018-02-12)
DX: Z45.2 Encounter for adjustment and management of vascular access device (principal)